=== PATIENT | male | born 1985 | race Caucasian/White ===

== ENCOUNTER 2019-11-03 05:35 | Inpatient (IN) | payer OTHER, MEDICAID ==
[2019-11-03] VITALS (14 sets, daily range): BP systolic 92–113; BP diastolic 48–66
[~2019-11-03] VITALS: Ht 172.7 cm; Wt 68.0 kg
[2019-11-03] MEDS ORDERED: methylPREDNISolone sod succ 125mg/2ml vial ONE (05:39)
[2019-11-03] MEDS ORDERED: magnesium 2GM in 50ml NS 50 ML IV STA (05:40)
[2019-11-03] MEDS ORDERED: albuterol 2.5 MG/3 ML nebule ONE (05:40)
[2019-11-03] MEDS ORDERED: methylPREDNISolone sod succ 125mg/2ml vial IV STA (05:40)
[2019-11-03] MEDS ORDERED: albuterol 2.5 MG/3 ML nebule CONTNEB PRN (05:45)
[2019-11-03] MEDS ORDERED: fentaNYL/PF 50MCG/1 ML 2ML syringe IV STA (05:57)
[2019-11-03] MEDS ORDERED: MIDAZolam 5mg/ml 2ml vial IV STA (05:57)
--- NOTE | 2019-11-03 05:58 | NUR ---
informed md of bp elevating and received order for fentanyl and versed. Order placed. MD at BS and full team in room 5.
[2019-11-03] MEDS ORDERED: sodium bicarbonate (8.4%) 1 mEq/ml syringe IV STA (05:59)
--- NOTE | 2019-11-03 05:59 | NUR ---
ordered 1 amp of bicarb/so done.
[2019-11-03] MEDS ORDERED: sodium bicarbonate (8.4%) inj. 1 MEQ/ML ML IV STA (06:03)
[2019-11-03 06:05] LABS: BASOPHILS # (AUTO) 0.1 X10'3 (0-0.2); BASOPHILS % (AUTO) 0.6 % (0-1); HEMOGLOBIN 13.5 g/dl (14.0-17.9)
[2019-11-03] MEDS ORDERED: FENTANYL-0.9 % NACL/PF 100 ML IV PRN (06:05)
[2019-11-03] MEDS ORDERED: midazolam 100mg in NS 100ml 100 ML IV PRN (06:05)
[2019-11-03 06:06] LABS: ABG BASE EXCESS -18.6 mmol/L (-2.0-2.0); ABG HCO3 17.2 mmol/L (22.0-26.0); ABG OXYGEN SATURATION 97.8 % (94-97); ABG PCO2 (T) 90.2 mmHg (35.0-48.0); ABG PO2 (T) 179.2 mmHg (75.0-100.0); ALLEN'S TEST POSITIVE; FCOHb 0.3 % (0.0-3.9); FLOW 15 L/min; FMetHb 0.4 % (0.0-1.5); FO2Hb 97.1 % (94-97); TOTAL HEMOGLOBIN 14.2 G/dl (14.0-18.0)
[2019-11-03 06:07] LABS: EOSINOPHILS # (AUTO) 0.5 X10'3 (0-0.9); EOSINOPHILS % (AUTO) 3.7 % (0-6); HEMATOCRIT 40.1 % (42.0-52.0); LYMPHOCYTES # (AUTO) 7.5 X10'3 (1.1-4.8); LYMPHOCYTES % (AUTO) 57.8 % (21-51); MEAN CORPUSCULAR HGB CONC 33.6 g/dL (33.0-36.5); MEAN CORPUSCULAR VOLUME 92.3 FL (78-98); MONOCYTES # (AUTO) 1.5 X10'3 (0-0.9); MONOCYTES % (AUTO) 11.3 % (2-12); NEUTROPHILS # (AUTO) 3.5 X10'3 (1.8-7.7); NEUTROPHILS % (AUTO) 26.6 % (42-75); PLATELET COUNT 295 X10'3 (140-440); RED BLOOD COUNT 4.35 X10'6 (4.70-6.10); RED CELL DISTRIBUTION WIDTH 12.5 % (11.5-14.5)
[2019-11-03 06:11] LABS: CLARITY,URINE SLIGHTLY CLOUDY (Clear); COLOR,URINE STRAW (Yellow); GLUCOSE, URINE 500 mg/dl (Neg); KETONES,URINE NEGATIVE (Neg); LEUKOCYTE ESTERASE ,URINE NEGATIVE (Neg); NITRITES, URINE NEGATIVE (Neg); OCCULT BLOOD,URINE SMALL (Neg); PROTEIN,URINE 100 mg/dl (Neg); UROBILINOGEN,URINE 0.2 E.U/dL (0.2-1.0)
[2019-11-03] MEDS ORDERED: CISatracurium besylate inj. 200 MG in normal saline 250ml IV soln 180 ML IV PRN (06:12)
--- NOTE | 2019-11-03 06:12 | NUR ---
rolled the pt to his side to assure there was nothing underneath him that could be hurting him as his bp is elevated.
[2019-11-03 06:15] LABS: UA COLLECTION TYPE FOLEY CATH
[2019-11-03] MEDS ORDERED: acetaminophen 325mg tablet PO PRN ×2 (06:15)
[2019-11-03] MEDS ORDERED: morphine 4 MG/ML inj SYRINge IV PRN (06:15)
[2019-11-03] MEDS ORDERED: morphine 2 MG/ML inj. syringe IV PRN (06:15)
[2019-11-03] MEDS: K, MAG and/or Phos replacement - Verify level? MC SCH ×2 (06:15→08:00)
[2019-11-03] MEDS ORDERED: CISatracurium **Bolus** 2 mg/ml inj IV PRN (06:15)
[2019-11-03] MEDS ORDERED: acetaminophen 650mg rectal suppository RC PRN (06:15)
[2019-11-03] MEDS ORDERED: ipratropium/albuterol 3ml nebule NEB PRN (06:15)
[2019-11-03] MEDS ORDERED: potassium Cl 20 mEq SR tablet PO PRN ×2 (06:15)
[2019-11-03] MEDS ORDERED: ondansetron/PF 4mg/2ml inj IV PRN (06:15)
[2019-11-03] MEDS ORDERED: LIDOcaine 2% 10ml TOPICAL JELLY (Urojet) TP ONE (06:15)
[2019-11-03] MEDS ORDERED: CefTRIAXone/D5W-Rocephin 1gm 50 ML IV ONE (06:15)
[2019-11-03 06:18] LABS: ALANINE AMINOTRANSFERASE 36 U/L (12-78); ALBUMIN 3.3 G/DL (3.4-5.0); ALBUMIN/GLOBULIN RATIO 1.3 (1.1-1.5); ALKALINE PHOSPHATASE 48 IU/L (46-116); ANION GAP 16 (8-16); ASPARTATE AMINO TRANSFERASE 26 U/L (10-37); BILIRUBIN,TOTAL 0.3 MG/DL (0.1-1.0); BLOOD UREA NITROGEN 20 MG/DL (7-18); BUN/CREATININE RATIO 12.1 (5.4-32.0); CALCIUM 7.5 MG/DL (8.5-10.1); CHLORIDE 106 MMOL/L (99-107); CREATININE 1.65 MG/DL (0.60-1.10); GLUCOSE 339 MG/DL (70-104); SODIUM 144 MMOL/L (135-145); TOTAL CARBON DIOXIDE 21.9 MMOL/L (24-32); TOTAL PROTEIN 5.8 G/DL (6.4-8.2); eGFR 49 ML/MIN
[2019-11-03] MEDS ORDERED: albuterol 2.5 MG/3 ML nebule NEB SCH (06:20)
[2019-11-03 06:23] LABS: BACTERIA,URINE 2+ /HPF (Neg)
[2019-11-03 06:24] LABS: SQUAMOUS EPITHELIAL CELL,UR FEW /LPF (FEW)
[2019-11-03 06:25] LABS: TRANSITIONAL EPI CELLS,URINE FEW /HPF
[2019-11-03 06:26] LABS: POTASSIUM 2.9 MMOL/L (3.5-5.1)
[2019-11-03 06:26] LABS: RENAL CELLS, URINE FEW /HPF
[2019-11-03 06:27] LABS: RBC,URINE 0-2 /HPF (0-2)
[2019-11-03] MEDS ORDERED: normal saline 1000ml 1,000 ML IV ONE (06:30)
--- NOTE | 2019-11-03 06:30 | NUR ---
REPORT RECIEVED, PT ON VENTILATOR WITH SETTINGS FIO2 100%, TV 350, PEEP8 66 RO, A/C PRVC. TACHYCARDIC, HYPERTENSIVE, COVID NEGATIVE. FENTANYL GTT AT 25MCG/HR RUNNING. VERSED GTT STARTED AT 2MG/HR. PT OVERBREATHING VENT WITH RR 30. TEMP DAMIAN IN PLACE WITH TEMP 34.5. REGINA MAGUIRE AT BEDSIDE. STILL NO PEDAL REFLEX TO STIMULI. PUPILS SLUGGISH AT 3MM BILAT.
[2019-11-03 06:33] LABS: URINE AMPHETAMINE SCREEN NEGATIVE (Neg); URINE BARBITUATE SCREEN NEGATIVE (Neg); URINE BENZODIAZEPINES SCREEN NEGATIVE (Neg); URINE CANNABINOID SCREEN NEGATIVE (Neg); URINE COCAINE SCREEN NEGATIVE (Neg); URINE METHADONE SCREEN NEGATIVE (Neg); URINE OPIATE SCREEN NEGATIVE (Neg); URINE PHENCYCLIDINE SCREEN NEGATIVE (Neg)
--- NOTE | 2019-11-03 06:45 | NUR ---
VIVIENNE AT BEDSIDE IN ER WITH MASK ON. DR. FRANKLIN IN TO SPEAK WITH FOR UPDATE OF PT.
--- NOTE | 2019-11-03 06:50 | NUR ---
TO CT WITH PT, VERSED INCREASED TO 4MG/HR, FENTANYL INCREASED TO 50MCG/HR DUE TO PT PAIN AND AGITATION.
[2019-11-03 06:58] LABS: ACETAMINOPHEN < 2.0 UG/ML (10-30); ETHANOL < 0.010 GM/DL (0.0-0.010)
[2019-11-03] MEDS: ipratropium/albuterol 3ml nebule NEB SCH ×5 (07:00→22:40)
--- NOTE | 2019-11-03 07:10 | NUR ---
BACK FROM CT, DEEP SUCTION DONE.
--- NOTE | 2019-11-03 07:30 | NUR ---
REMAINS AT BEDSIDE AND UPDATED ON POC. REPEAT ABG DONE. VS AND PT COMFORT BETTER AFTER INCREASE IN GTTS, VERSED AT 10MG/HR, FENTANYL AT 100MCG/HR OKAYED PER MD AFTER PT VS AND AGITATION TOO HIGH. WAITING ICU ROOM.
[2019-11-03 07:40] LABS: PLATELET ESTIMATE NORMAL; TOTAL CELLS COUNTED 100
[2019-11-03 07:41] LABS: SMUDGE CELLS 2+
--- NOTE | 2019-11-03 07:45 | NUR ---
MULTIPLE ATTEMPTS BY NOC SHIFT AND THIS NURSE TO PLACE NGT/OGT WITHOUT SUCCESS. REGINA FIELD ADMINISTRATOR AWARE BY NOC STAFF. WAITING FOR PT MEDS TO HELP CALM PT HE BITES DOWN ON TUBES AND SUCTION CATHETER. ORANGE BITE BLOCK PLACED BY RT.
[2019-11-03 07:50] LABS: ABG BASE EXCESS -8.4 mmol/L (-2.0-2.0); ABG HCO3 19.3 mmol/L (22.0-26.0); ABG OXYGEN SATURATION 99.4 % (94-97); ABG PCO2 (T) 43.6 mmHg (35.0-48.0); ALLEN'S TEST POSITIVE; FCOHb 0.3 % (0.0-3.9); FMetHb 0.4 % (0.0-1.5); FO2Hb 98.7 % (94-97); PEEP 8 cm H2O; RESPIRATORY RATE 20 b/min; TIDAL VOLUME 350 mL; TOTAL HEMOGLOBIN 15.7 G/dl (14.0-18.0)
[2019-11-03] MEDS: normal saline 1000ml 1,000 ML IV SCH ×2 (07:50→11:44)
[2019-11-03] MEDS ORDERED: methylPREDNISolone sod succ/PF 40mg inj. IV SCH (08:00)
[2019-11-03] MEDS ORDERED: magnesium 1 GM/2 ML inj ONE (08:00)
--- NOTE | 2019-11-03 08:02 | NUR ---
REPEAT ABG BACK WITH IMPROVEMENT, FIO2 DECREASED TO 50% AND PEEP DECREASED TO 5.
[2019-11-03 08:03] LABS: MAGNESIUM 2.5 MG/DL (1.5-2.4)
[2019-11-03] MEDS: enoxaparin 40mg/0.4ml syringe SUBCUT SCH (08:36)
[2019-11-03] MEDS: pantoprazole 40 MG vial IV SCH (08:36)
[2019-11-03 09:30] LABS: ANION GAP 14 (8-16); BLOOD UREA NITROGEN 19 MG/DL (7-18); CALCIUM 7.4 MG/DL (8.5-10.1); CHLORIDE 104 MMOL/L (99-107); CREATININE 1.36 MG/DL (0.60-1.10); GLUCOSE 357 MG/DL (70-104); MAGNESIUM 2.4 MG/DL (1.5-2.4); POTASSIUM 3.1 MMOL/L (3.5-5.1); SODIUM 141 MMOL/L (135-145); TOTAL CARBON DIOXIDE 23.2 MMOL/L (24-32); eGFR 61 ML/MIN
[2019-11-03] MEDS: potassium CL 10mEq/100ml bag 100 ML IV PRN ×4 (11:39→15:19)
[2019-11-03 12:33] LABS: CKMB RELATIVE INDEX 1.1 RATIO (0-2.5); TROPONIN I 0.04 NG/ML (0.0-0.05)
--- NOTE | 2019-11-03 13:58 | NUR ---
Initial: Pt admit s/p cardiac arrest and status asthmaticus. Pt intubated, no OG tube in place at this time. Current wt isn't scaled, d/w RN recommendation to obtain a scaled weight. TF recommendations below were calculated using IBW given no scaled weight for if prolonged intubation and to receive alternative nutrition. Will continue to follow closely. Recommendations: 1) IF TF, continuous Vital AF with goal rate of 60 mL/hr 2) IF TF, additional 200 mL water flush Q4H 3) IF TF, prealbumin q Wednesday/; daily weights 4) Once extubated, diet advancement to regular as medically indicated Addendum: 11/03/19 at [address] Amended: Links added.
[2019-11-03 14:04] LABS: PARTIAL THROMBOPLASTIN TIME 24 SECONDS (22-32)
[2019-11-03] MEDS: methylPREDNISolone sod succ/PF 40mg inj. IV SCH ×2 (14:05→20:37)
[2019-11-03] MEDS: FENTANYL-0.9 % NACL/PF 100 ML IV PRN ×2 (14:12→20:38)
[2019-11-03] MEDS: midazolam 100mg in NS 100ml 100 ML IV PRN ×2 (16:09→20:37)
--- NOTE | 2019-11-03 16:12 | NUR ---
Pt arrived to ICU at 0856, Jittery movement almost every 60 seconds, Informed Dr. Del Toro, EEG done, Dr. Del Toor aware of result. Labs discussed with Dr. Del Toro during rounds. Started pt on Hypothermia at 1228pm, NG and esophageal temp probe inserted. NG to LIWS, Potassium replaced, Lactic acid Q2Hr, BIS monitor started. Pt started targeted temperature around 1500. Will continue care
[2019-11-03] MEDS ORDERED: CITA20TA28 PO ×2 (17:49→18:47)
[2019-11-03] MEDS ORDERED: GABA800T11 PO ×2 (17:49→18:47)
--- NOTE | 2019-11-03 18:32 | NUR ---
Problems reprioritized. Patient report given, questions answered & plan of care reviewed with Kirsty.
--- NOTE | 2019-11-03 18:35 | NUR ---
[id number] I have received report and assumed care of pt. Pt resting in bed, on ventilator, hypothermic Protocol in place. Versed and Fentanyl in place to keep BIZ 40-55, titrated per protocol. Myoclonic jerking noted, generalized lasting a few seconds with an interval of 20 to 30 sec. BIZ near 80 to 90. increased per protocol. Blood work sent to Lab, Dr. Del Toro rounded briefly updated on pt. Nimbex started per protocol. Pt has reached target temp. Phase 2 started. called updated on pts condition, questions answered.
--- NOTE | 2019-11-03 18:39 | NUR ---
Gave report to Leticia (RN). She is aware of last Lactic Acid (9.6), she said she will get an ABG on the patient and call the results to Dr. Del Toro.
[2019-11-03 19:01] LABS: ABG BASE EXCESS -10.9 mmol/L (-2.0-2.0); ABG HCO3 16.3 mmol/L (22.0-26.0); ABG OXYGEN SATURATION 98.7 % (94-97); ABG PCO2 (T) 34.4 mmHg (35.0-48.0); ABG PO2 (T) 142.7 mmHg (75.0-100.0); ALLEN'S TEST POSITIVE; FCOHb 0.3 % (0.0-3.9); FMetHb 0.1 % (0.0-1.5); FO2Hb 98.3 % (94-97); PATIENT TEMPERATURE 32.9; PEEP 5 cm H2O; RESPIRATORY RATE 20 b/min; TIDAL VOLUME 350 mL; TOTAL HEMOGLOBIN 14.8 G/dl (14.0-18.0)
[2019-11-03 19:12] LABS: BLOOD UREA NITROGEN 19 MG/DL (7-18); GLUCOSE 138 MG/DL (70-104)
[2019-11-03 19:40] LABS: ALBUMIN 4.1 G/DL (3.4-5.0); ANION GAP 20 (8-16); CALCIUM 8.2 MG/DL (8.5-10.1); CHLORIDE 106 MMOL/L (99-107); CKMB RELATIVE INDEX 0.8 RATIO (0-2.5); CREATINE KINASE 354 U/L (39-308); CREATININE 1.12 MG/DL (0.60-1.10); MAGNESIUM 2.1 MG/DL (1.5-2.4); POTASSIUM 3.9 MMOL/L (3.5-5.1); SODIUM 145 MMOL/L (135-145); TOTAL CARBON DIOXIDE 19.5 MMOL/L (24-32); TROPONIN I < 0.04 NG/ML (0.0-0.05); eGFR 76 ML/MIN
[2019-11-03 19:47] LABS: PARTIAL THROMBOPLASTIN TIME 25 SECONDS (22-32)
[2019-11-03 19:49] LABS: ALANINE AMINOTRANSFERASE 45 U/L (12-78); ALBUMIN 3.9 G/DL (3.4-5.0); ALBUMIN/GLOBULIN RATIO 1.3 (1.1-1.5); ALKALINE PHOSPHATASE 44 IU/L (46-116); ANION GAP 16 (8-16); ASPARTATE AMINO TRANSFERASE 27 U/L (10-37); BILIRUBIN,TOTAL 0.2 MG/DL (0.1-1.0); BLOOD UREA NITROGEN 16 MG/DL (7-18); BUN/CREATININE RATIO 15.1 (5.4-32.0); CALCIUM 7.9 MG/DL (8.5-10.1); CHLORIDE 108 MMOL/L (99-107); CREATININE 1.06 MG/DL (0.60-1.10); GLUCOSE 125 MG/DL (70-104); POTASSIUM 4.3 MMOL/L (3.5-5.1); SODIUM 142 MMOL/L (135-145); TOTAL CARBON DIOXIDE 17.6 MMOL/L (24-32); TOTAL PROTEIN 6.8 G/DL (6.4-8.2); eGFR 81 ML/MIN
[2019-11-03] MEDS: CISatracurium besylate inj. 100 MG in normal saline 100ml IV soln 90 ML IV PRN (19:56)
--- NOTE | 2019-11-03 20:00 | NUR ---
Pt no longer having myoclonic jerking Biz is less then 60
[2019-11-03 22:05] LABS: BASOPHILS % (AUTO) 0.2 % (0-1); EOSINOPHILS % (AUTO) 0 % (0-6); HEMOGLOBIN 13.5 g/dl (14.0-17.9); LYMPHOCYTES # (AUTO) 0.6 X10'3 (1.1-4.8); LYMPHOCYTES % (AUTO) 4.6 % (21-51); MEAN CORPUSCULAR HEMOGLOBIN 29.8 PG (27.0-31.0); MEAN CORPUSCULAR HGB CONC 33.8 g/dL (33.0-36.5); MEAN CORPUSCULAR VOLUME 88.2 FL (78-98); MEAN PLATELET VOLUME 8.9 FL (7.4-10.4); MONOCYTES # (AUTO) 0.6 X10'3 (0-0.9); NEUTROPHILS # (AUTO) 11.2 X10'3 (1.8-7.7); NEUTROPHILS % (AUTO) 90.2 % (42-75); PLATELET COUNT 233 X10'3 (140-440); RED BLOOD COUNT 4.54 X10'6 (4.70-6.10); RED CELL DISTRIBUTION WIDTH 12.5 % (11.5-14.5); WHITE BLOOD COUNT 12.4 X10'3 (4.5-11.0)
[2019-11-03 22:19] LABS: ALBUMIN 3.6 G/DL (3.4-5.0); ANION GAP 16 (8-16); BLOOD UREA NITROGEN 17 MG/DL (7-18); BUN/CREATININE RATIO 17.3 (5.4-32.0); CALCIUM 7.9 MG/DL (8.5-10.1); CHLORIDE 107 MMOL/L (99-107); CKMB RELATIVE INDEX 1.4 RATIO (0-2.5); CREATINE KINASE 315 U/L (39-308); CREATININE 0.98 MG/DL (0.60-1.10); GLUCOSE 125 MG/DL (70-104); MAGNESIUM 1.7 MG/DL (1.5-2.4); POTASSIUM 4.6 MMOL/L (3.5-5.1); SODIUM 142 MMOL/L (135-145); TOTAL CARBON DIOXIDE 19.1 MMOL/L (24-32); TROPONIN I < 0.04 NG/ML (0.0-0.05); eGFR 89 ML/MIN
[2019-11-04] VITALS (24 sets, daily range): BP systolic 99–132; BP diastolic 51–77
[2019-11-04 00:35] LABS: BASOPHILS % (AUTO) 0.2 % (0-1); EOSINOPHILS % (AUTO) 0 % (0-6); HEMATOCRIT 39.8 % (42.0-52.0); HEMOGLOBIN 13.8 g/dl (14.0-17.9); LYMPHOCYTES # (AUTO) 0.7 X10'3 (1.1-4.8); LYMPHOCYTES % (AUTO) 5.5 % (21-51); MEAN CORPUSCULAR HEMOGLOBIN 30.7 PG (27.0-31.0); MEAN CORPUSCULAR HGB CONC 34.6 g/dL (33.0-36.5); MEAN CORPUSCULAR VOLUME 88.6 FL (78-98); MEAN PLATELET VOLUME 8.9 FL (7.4-10.4); MONOCYTES % (AUTO) 7.4 % (2-12); NEUTROPHILS # (AUTO) 11.4 X10'3 (1.8-7.7); NEUTROPHILS % (AUTO) 86.9 % (42-75); PLATELET COUNT 219 X10'3 (140-440); RED BLOOD COUNT 4.49 X10'6 (4.70-6.10); RED CELL DISTRIBUTION WIDTH 12.3 % (11.5-14.5); WHITE BLOOD COUNT 13.1 X10'3 (4.5-11.0)
--- NOTE | 2019-11-04 00:45 | NUR ---
Bis having spikes of an increase of 10 points approx q 3 to 5 sec without any stimulation, versed increased to 20mg/hr Devante Yee NP aware.
[2019-11-04 00:48] LABS: PARTIAL THROMBOPLASTIN TIME 25 SECONDS (22-32)
[2019-11-04 01:04] LABS: ALANINE AMINOTRANSFERASE 44 U/L (12-78); ALBUMIN 3.6 G/DL (3.4-5.0); ALBUMIN/GLOBULIN RATIO 1.3 (1.1-1.5); ALKALINE PHOSPHATASE 37 IU/L (46-116); ANION GAP 15 (8-16); ASPARTATE AMINO TRANSFERASE 30 U/L (10-37); BILIRUBIN,TOTAL 0.2 MG/DL (0.1-1.0); BLOOD UREA NITROGEN 16 MG/DL (7-18); CALCIUM 7.9 MG/DL (8.5-10.1); CHLORIDE 107 MMOL/L (99-107); CKMB RELATIVE INDEX 1.5 RATIO (0-2.5); CREATINE KINASE 305 U/L (39-308); CREATININE 0.94 MG/DL (0.60-1.10); GLUCOSE 128 MG/DL (70-104); MAGNESIUM 1.7 MG/DL (1.5-2.4); PHOSPHORUS 4.8 MG/DL (2.3-4.5); POTASSIUM 4.1 MMOL/L (3.5-5.1); SODIUM 142 MMOL/L (135-145); TOTAL CARBON DIOXIDE 20.1 MMOL/L (24-32); TOTAL PROTEIN 6.3 G/DL (6.4-8.2); TROPONIN I < 0.04 NG/ML (0.0-0.05); eGFR > 90 ML/MIN
[2019-11-04] MEDS: methylPREDNISolone sod succ/PF 40mg inj. IV SCH ×4 (02:20→20:57)
--- NOTE | 2019-11-04 02:43 | NUR ---
Pt having less frequent BIS spikes then prior to increase in versed. continue to monitor, hob 30-40 degrees with neutral head position, room remains dark with minimal stimuli.
[2019-11-04] MEDS: ipratropium/albuterol 3ml nebule NEB SCH ×6 (03:19→22:50)
[2019-11-04 03:40] LABS: ABG BASE EXCESS -6.5 mmol/L (-2.0-2.0); ABG HCO3 18.4 mmol/L (22.0-26.0); ABG OXYGEN SATURATION 97.8 % (94-97); ABG PCO2 (T) 29.5 mmHg (35.0-48.0); ABG PO2 (T) 88.7 mmHg (75.0-100.0); ALLEN'S TEST POSITIVE; FCOHb 0.1 % (0.0-3.9); FMetHb 0.1 % (0.0-1.5); FO2Hb 97.6 % (94-97); PEEP 5 cm H2O; RESPIRATORY RATE 20 b/min; TIDAL VOLUME 450 mL; TOTAL HEMOGLOBIN 14.3 G/dl (14.0-18.0)
[2019-11-04] MEDS: FENTANYL-0.9 % NACL/PF 100 ML IV PRN ×3 (03:53→18:03)
[2019-11-04] MEDS: midazolam 100mg in NS 100ml 100 ML IV PRN ×3 (03:53→14:17)
--- NOTE | 2019-11-04 06:14 | NUR ---
report given to rec rn plan of care reviewed
[2019-11-04 06:16] LABS: ALBUMIN 3.6 G/DL (3.4-5.0); ANION GAP 17 (8-16); BLOOD UREA NITROGEN 15 MG/DL (7-18); BUN/CREATININE RATIO 24.2 (5.4-32.0); CALCIUM 8.5 MG/DL (8.5-10.1); CHLORIDE 107 MMOL/L (99-107); CKMB RELATIVE INDEX 1.7 RATIO (0-2.5); CREATINE KINASE 328 U/L (39-308); CREATININE 0.62 MG/DL (0.60-1.10); GLUCOSE 139 MG/DL (70-104); MAGNESIUM 1.6 MG/DL (1.5-2.4); SODIUM 141 MMOL/L (135-145); TOTAL CARBON DIOXIDE 17.5 MMOL/L (24-32); TROPONIN I < 0.04 NG/ML (0.0-0.05); eGFR > 90 ML/MIN
[2019-11-04 06:18] LABS: POTASSIUM 3.5 MMOL/L (3.5-5.1)
[2019-11-04] MEDS: mineral oil/petrolatum ophthal oint EACHEYE SCH ×3 (07:10→20:00)
[2019-11-04] MEDS: pantoprazole 40 MG vial IV SCH (07:10)
[2019-11-04] MEDS: enoxaparin 40mg/0.4ml syringe SUBCUT SCH (07:11)
[2019-11-04] MEDS: K, MAG and/or Phos replacement - Verify level? MC SCH (07:54)
[2019-11-04 09:00] LABS: ABG BASE EXCESS -3.2 mmol/L (-2.0-2.0); ABG HCO3 21.4 mmol/L (22.0-26.0); ABG OXYGEN SATURATION 96.9 % (94-97); ABG PO2 (T) 76.9 mmHg (75.0-100.0); ALLEN'S TEST POSITIVE; FCOHb 0.2 % (0.0-3.9); FMetHb 0.2 % (0.0-1.5); FO2Hb 96.5 % (94-97); PATIENT TEMPERATURE 32.9; PEEP 5 cm H2O; RESPIRATORY RATE 20 b/min; TIDAL VOLUME 450 mL; TOTAL HEMOGLOBIN 14.4 G/dl (14.0-18.0)
[2019-11-04 09:23] LABS: BASOPHILS % (AUTO) 0.1 % (0-1); EOSINOPHILS % (AUTO) 0 % (0-6); HEMATOCRIT 39.8 % (42.0-52.0); HEMOGLOBIN 13.9 g/dl (14.0-17.9); LYMPHOCYTES # (AUTO) 0.8 X10'3 (1.1-4.8); LYMPHOCYTES % (AUTO) 5.4 % (21-51); MEAN CORPUSCULAR HEMOGLOBIN 30.6 PG (27.0-31.0); MEAN CORPUSCULAR HGB CONC 34.8 g/dL (33.0-36.5); MEAN CORPUSCULAR VOLUME 87.8 FL (78-98); MEAN PLATELET VOLUME 9.2 FL (7.4-10.4); MONOCYTES # (AUTO) 0.9 X10'3 (0-0.9); MONOCYTES % (AUTO) 6.6 % (2-12); NEUTROPHILS # (AUTO) 12.5 X10'3 (1.8-7.7); NEUTROPHILS % (AUTO) 87.9 % (42-75); PLATELET COUNT 221 X10'3 (140-440); RED BLOOD COUNT 4.54 X10'6 (4.70-6.10); RED CELL DISTRIBUTION WIDTH 12.9 % (11.5-14.5); WHITE BLOOD COUNT 14.2 X10'3 (4.5-11.0)
[2019-11-04 09:36] LABS: PARTIAL THROMBOPLASTIN TIME 27 SECONDS (22-32)
--- NOTE | 2019-11-04 09:54 | NUR ---
Call received from Radiology, NG tube coiled up in the esophagus. Pulled the tube out, placed a new NG tube to R-Nare. Placement confirmed with Auscultation and suction. Dr. Stewart aware, Asked Dr. Stewart if he wants an x-ray, he said not needed as placement is confirmed with auscultation and suction, 100ml of Green drainage.
[2019-11-04 10:50] LABS: ALANINE AMINOTRANSFERASE 43 U/L (12-78); ALBUMIN 3.7 G/DL (3.4-5.0); ALBUMIN/GLOBULIN RATIO 1.3 (1.1-1.5); ALKALINE PHOSPHATASE 39 IU/L (46-116); ANION GAP 13 (8-16); ASPARTATE AMINO TRANSFERASE 36 U/L (10-37); BILIRUBIN,TOTAL 0.3 MG/DL (0.1-1.0); BLOOD UREA NITROGEN 12 MG/DL (7-18); BUN/CREATININE RATIO 16.7 (5.4-32.0); CALCIUM 8.8 MG/DL (8.5-10.1); CHLORIDE 108 MMOL/L (99-107); CREATININE 0.72 MG/DL (0.60-1.10); GLUCOSE 122 MG/DL (70-104); MAGNESIUM 1.8 MG/DL (1.5-2.4); SODIUM 142 MMOL/L (135-145); TOTAL CARBON DIOXIDE 21.5 MMOL/L (24-32); TOTAL PROTEIN 6.5 G/DL (6.4-8.2); eGFR > 90 ML/MIN
[2019-11-04] MEDS: CISatracurium besylate inj. 100 MG in normal saline 100ml IV soln 90 ML IV PRN (12:08)
[2019-11-04 13:16] LABS: CKMB RELATIVE INDEX 2.7 RATIO (0-2.5); CREATINE KINASE 258 U/L (39-308); TROPONIN I < 0.04 NG/ML (0.0-0.05)
--- NOTE | 2019-11-04 13:52 | NUR ---
Pt is having very mild twitches that happens almost every 30-60 secs, Dr. Stewart at bedside, lab results and pt condition reported to him, Also informed Dr. Stewart about the twitches and its frequency. He said to increase the rate of Nimbex. Dr Stewart also spoke with pt's over the phone. Addendum: 11/04/19 at 1408 by Seng Biswas RN The frequency of twitches were very far apart this morning (maybe about 1 twitch every 30-60 minutes or even less), as of the last hour it has increased to almost every 30-60 seconds. Addendum: 11/04/19 at 1523 by Seng Biswas RN No More twitches noted with increase in Nimbex.
[2019-11-04 16:01] LABS: ABG BASE EXCESS -2.7 mmol/L (-2.0-2.0); ABG HCO3 21.5 mmol/L (22.0-26.0); ABG OXYGEN SATURATION 97.4 % (94-97); ABG PCO2 (T) 30.3 mmHg (35.0-48.0); ABG PO2 (T) 81.9 mmHg (75.0-100.0); FCOHb 0.3 % (0.0-3.9); FMetHb 0.2 % (0.0-1.5); FO2Hb 96.9 % (94-97); PATIENT TEMPERATURE 33.1; PEEP 5 cm H2O; RESPIRATORY RATE 20 b/min; TIDAL VOLUME 450 mL; TOTAL HEMOGLOBIN 14.6 G/dl (14.0-18.0)
[2019-11-04] MEDS: normal saline 1000ml 1,000 ML IV SCH ×2 (16:03→22:12)
[2019-11-04 16:17] LABS: ALBUMIN 3.8 G/DL (3.4-5.0); ANION GAP 9 (8-16); BLOOD UREA NITROGEN 8 MG/DL (7-18); BUN/CREATININE RATIO 12.7 (5.4-32.0); CALCIUM 9.3 MG/DL (8.5-10.1); CHLORIDE 110 MMOL/L (99-107); CREATININE 0.63 MG/DL (0.60-1.10); GLUCOSE 120 MG/DL (70-104); MAGNESIUM 2.1 MG/DL (1.5-2.4); POTASSIUM 4.4 MMOL/L (3.5-5.1); SODIUM 143 MMOL/L (135-145); TOTAL CARBON DIOXIDE 24.1 MMOL/L (24-32); eGFR > 90 ML/MIN
--- NOTE | 2019-11-04 17:22 | NUR ---
Phase 3, Rewarming started at 1440.
--- NOTE | 2019-11-04 18:24 | NUR ---
Problems reprioritized. Patient report given, questions answered & plan of care reviewed with Frantz.
--- NOTE | 2019-11-04 19:00 | NUR ---
Patient in room ICU 2042. I have received report from Zofia TAYLOR and had the opportunity to ask questions and assume patient care.
[2019-11-04 20:50] LABS: ALBUMIN 3.6 G/DL (3.4-5.0); ANION GAP 10 (8-16); BLOOD UREA NITROGEN 9 MG/DL (7-18); BUN/CREATININE RATIO 13.6 (5.4-32.0); CALCIUM 8.9 MG/DL (8.5-10.1); CHLORIDE 111 MMOL/L (99-107); CREATINE KINASE 232 U/L (39-308); CREATININE 0.66 MG/DL (0.60-1.10); GLUCOSE 125 MG/DL (70-104); MAGNESIUM 2.1 MG/DL (1.5-2.4); POTASSIUM 3.6 MMOL/L (3.5-5.1); SODIUM 145 MMOL/L (135-145); TOTAL CARBON DIOXIDE 24.5 MMOL/L (24-32); eGFR > 90 ML/MIN
[2019-11-04 21:00] LABS: ABG BASE EXCESS -4.2 mmol/L (-2.0-2.0); ABG HCO3 20.5 mmol/L (22.0-26.0); ABG OXYGEN SATURATION 96.7 % (94-97); ABG PCO2 (T) 32.5 mmHg (35.0-48.0); ABG PO2 (T) 82.2 mmHg (75.0-100.0); ALLEN'S TEST POSITIVE; FCOHb 0.3 % (0.0-3.9); FMetHb 0.1 % (0.0-1.5); FO2Hb 96.3 % (94-97); PATIENT TEMPERATURE 34.3; PEEP 5 cm H2O; RESPIRATORY RATE 18 b/min; TIDAL VOLUME 450 mL
[2019-11-04 21:16] LABS: CKMB RELATIVE INDEX 2.5 RATIO (0-2.5); TROPONIN I < 0.04 NG/ML (0.0-0.05)
[2019-11-05] VITALS (43 sets, daily range): BP systolic 106–135; BP diastolic 49–74
[2019-11-05] MEDS: methylPREDNISolone sod succ/PF 40mg inj. IV SCH ×4 (02:00→23:44)
[2019-11-05] MEDS: mineral oil/petrolatum ophthal oint EACHEYE SCH ×4 (02:00→20:12)
[2019-11-05 02:16] LABS: ABG BASE EXCESS -3.4 mmol/L (-2.0-2.0); ABG HCO3 21.2 mmol/L (22.0-26.0); ABG OXYGEN SATURATION 97.2 % (94-97); ABG PCO2 (T) 34.5 mmHg (35.0-48.0); ABG PO2 (T) 97.3 mmHg (75.0-100.0); ALLEN'S TEST POSITIVE; FCOHb 0.3 % (0.0-3.9); FMetHb 0.1 % (0.0-1.5); FO2Hb 96.8 % (94-97); PATIENT TEMPERATURE 35.7; PEEP 5 cm H2O; RESPIRATORY RATE 18 b/min; TIDAL VOLUME 450 mL; TOTAL HEMOGLOBIN 13.7 G/dl (14.0-18.0)
[2019-11-05] MEDS: midazolam 100mg in NS 100ml 100 ML IV PRN ×5 (02:22→21:56)
[2019-11-05] MEDS: FENTANYL-0.9 % NACL/PF 100 ML IV PRN ×4 (02:24→21:56)
[2019-11-05 02:43] LABS: BASOPHILS % (AUTO) 0.1 % (0-1); EOSINOPHILS % (AUTO) 0 % (0-6); HEMATOCRIT 35.6 % (42.0-52.0); HEMOGLOBIN 12.4 g/dl (14.0-17.9); LYMPHOCYTES # (AUTO) 0.9 X10'3 (1.1-4.8); MEAN CORPUSCULAR HEMOGLOBIN 30.9 PG (27.0-31.0); MEAN CORPUSCULAR HGB CONC 34.9 g/dL (33.0-36.5); MEAN CORPUSCULAR VOLUME 88.7 FL (78-98); MEAN PLATELET VOLUME 9.5 FL (7.4-10.4); MONOCYTES # (AUTO) 0.9 X10'3 (0-0.9); NEUTROPHILS # (AUTO) 13.8 X10'3 (1.8-7.7); NEUTROPHILS % (AUTO) 87.9 % (42-75); PLATELET COUNT 226 X10'3 (140-440); RED BLOOD COUNT 4.01 X10'6 (4.70-6.10); RED CELL DISTRIBUTION WIDTH 12.7 % (11.5-14.5); WHITE BLOOD COUNT 15.7 X10'3 (4.5-11.0)
[2019-11-05 02:51] LABS: PARTIAL THROMBOPLASTIN TIME 26 SECONDS (22-32)
[2019-11-05 03:10] LABS: ALANINE AMINOTRANSFERASE 36 U/L (12-78); ALBUMIN 3.1 G/DL (3.4-5.0); ALBUMIN/GLOBULIN RATIO 1.2 (1.1-1.5); ALKALINE PHOSPHATASE 36 IU/L (46-116); ANION GAP 9 (8-16); ASPARTATE AMINO TRANSFERASE 46 U/L (10-37); BILIRUBIN,TOTAL 0.2 MG/DL (0.1-1.0); BLOOD UREA NITROGEN 10 MG/DL (7-18); BUN/CREATININE RATIO 13.9 (5.4-32.0); CHLORIDE 113 MMOL/L (99-107); CKMB RELATIVE INDEX 2.6 RATIO (0-2.5); CREATINE KINASE 153 U/L (39-308); CREATININE 0.72 MG/DL (0.60-1.10); GLUCOSE 111 MG/DL (70-104); MAGNESIUM 1.9 MG/DL (1.5-2.4); PHOSPHORUS 3.1 MG/DL (2.3-4.5); POTASSIUM 3.6 MMOL/L (3.5-5.1); SODIUM 146 MMOL/L (135-145); TOTAL PROTEIN 5.6 G/DL (6.4-8.2); TROPONIN I < 0.04 NG/ML (0.0-0.05); eGFR > 90 ML/MIN
[2019-11-05] MEDS: ipratropium/albuterol 3ml nebule NEB SCH ×6 (03:22→23:20)
[2019-11-05] MEDS: CISatracurium besylate inj. 100 MG in normal saline 100ml IV soln 90 ML IV PRN (04:04)
--- NOTE | 2019-11-05 05:12 | NUR ---
Weaned patient of
--- NOTE | 2019-11-05 05:13 | NUR ---
Weaned patient off of nimbex as the patient reached its target temperature. Pt heart rate slowly increased as his temp rojelio. PT is doing frequent twitches some more spastic than others. heart rate is currently sustaining in the low 130's, but maintaining good blood pressures and O2 saturations. I called Johnson about the high heart rate and the twitching and he said there was not much to do at this point but to monitor his vitals signs.
[2019-11-05 06:31] LABS: CKMB RELATIVE INDEX 2.7 RATIO (0-2.5); CREATINE KINASE 162 U/L (39-308); TROPONIN I < 0.04 NG/ML (0.0-0.05)
[2019-11-05] MEDS: enoxaparin 40mg/0.4ml syringe SUBCUT SCH (07:33)
[2019-11-05] MEDS: pantoprazole 40 MG vial IV SCH (07:34)
[2019-11-05] MEDS: K, MAG and/or Phos replacement - Verify level? MC SCH (08:44)
[2019-11-05 09:40] LABS: ABG BASE EXCESS -1.9 mmol/L (-2.0-2.0); ABG HCO3 23.2 mmol/L (22.0-26.0); ABG OXYGEN SATURATION 96.9 % (94-97); ABG PCO2 (T) 40.4 mmHg (35.0-48.0); ABG PO2 (T) 92.9 mmHg (75.0-100.0); ALLEN'S TEST POSITIVE; FCOHb 0.3 % (0.0-3.9); FMetHb 0.2 % (0.0-1.5); FO2Hb 96.4 % (94-97); PATIENT TEMPERATURE 36.8; PEEP 5 cm H2O; RESPIRATORY RATE 18 b/min; TIDAL VOLUME 450 mL; TOTAL HEMOGLOBIN 13.5 G/dl (14.0-18.0)
[2019-11-05 10:12] LABS: ALBUMIN 3.5 G/DL (3.4-5.0); ANION GAP 9 (8-16); BLOOD UREA NITROGEN 15 MG/DL (7-18); BUN/CREATININE RATIO 17.4 (5.4-32.0); CALCIUM 8.6 MG/DL (8.5-10.1); CHLORIDE 111 MMOL/L (99-107); CREATINE KINASE 140 U/L (39-308); CREATININE 0.86 MG/DL (0.60-1.10); GLUCOSE 116 MG/DL (70-104); SODIUM 145 MMOL/L (135-145); TOTAL CARBON DIOXIDE 25.5 MMOL/L (24-32); TROPONIN I < 0.04 NG/ML (0.0-0.05); eGFR > 90 ML/MIN
--- NOTE | 2019-11-05 10:20 | NUR ---
TF Consult: Trickle TF to start today at 10ml/hr per retail store associate. MAP 73 this AM w/ R NG in place per EMR. Recs below; will monitor for EN tolerance and advancement as medically indicated. Initial: Pt admit s/p cardiac arrest and status asthmaticus. Pt intubated, no OG tube in place at this time. Current wt isn't scaled, d/w RN recommendation to obtain a scaled weight. TF recommendations below were calculated using IBW given no scaled weight for if prolonged intubation and to receive alternative nutrition. Will continue to follow closely. Recommendations: 1) Trickle NGTF per MD using Vital AF at 10ml/hr; if tolerates trickle advance as medically indicated to goal rate of 60 mL/hr 2) additional 200 mL water flush Q4H 3) prealbumin q Wednesday/; daily weights 4) Once extubation, diet advancement to regular as medically indicated Addendum: 11/05/19 at [address] Amended: Links added.
[2019-11-05] MEDS: normal saline 1000ml 1,000 ML IV SCH ×2 (11:13→19:00)
[2019-11-05 14:50] LABS: ABG BASE EXCESS -1.7 mmol/L (-2.0-2.0); ABG HCO3 23.7 mmol/L (22.0-26.0); ABG OXYGEN SATURATION 96.6 % (94-97); ABG PO2 (T) 87.8 mmHg (75.0-100.0); ALLEN'S TEST POSITIVE; FCOHb 0.3 % (0.0-3.9); FMetHb 0.2 % (0.0-1.5); FO2Hb 96.1 % (94-97); PATIENT TEMPERATURE 36.6; RESPIRATORY RATE 18 b/min; TIDAL VOLUME 450 mL; TOTAL HEMOGLOBIN 13.7 G/dl (14.0-18.0)
[2019-11-05 15:42] LABS: ALBUMIN 3.4 G/DL (3.4-5.0); ANION GAP 8 (8-16); BLOOD UREA NITROGEN 17 MG/DL (7-18); BUN/CREATININE RATIO 19.8 (5.4-32.0); CALCIUM 8.4 MG/DL (8.5-10.1); CHLORIDE 110 MMOL/L (99-107); CREATININE 0.86 MG/DL (0.60-1.10); GLUCOSE 162 MG/DL (70-104); POTASSIUM 3.8 MMOL/L (3.5-5.1); SODIUM 143 MMOL/L (135-145); TOTAL CARBON DIOXIDE 24.9 MMOL/L (24-32); eGFR > 90 ML/MIN
--- NOTE | 2019-11-05 17:32 | NUR ---
Still on phase 4 of TTM. Pt has stopped twitching since mid afternoon, pupils dilated to size 4, some cough while repositioning, still no response. Started on Trickle Tube feeding with water flushes. Dr. Stewart spoke with family via phone. Per his permission and sister in law came to visit. Dr. Stewart spoke with them at bedside. Per code status changed to DNR. Pt will have MRI, EEG and neuro tele consult tomorrow. Will continue monitoring.
[2019-11-05 17:51] LABS: CREATINE KINASE 147 U/L (39-308); TROPONIN I < 0.04 NG/ML (0.0-0.05)
--- NOTE | 2019-11-05 18:20 | NUR ---
Patient in room ICU 2042. I have received report from Seng TAYLOR and had the opportunity to ask questions and assume patient care.
--- NOTE | 2019-11-05 18:22 | NUR ---
Problems reprioritized. Patient report given, questions answered & plan of care reviewed with Shanae.
[2019-11-05 21:31] LABS: ALBUMIN 3.2 G/DL (3.4-5.0); ANION GAP 7 (8-16); BLOOD UREA NITROGEN 16 MG/DL (7-18); BUN/CREATININE RATIO 17.6 (5.4-32.0); CALCIUM 8.7 MG/DL (8.5-10.1); CHLORIDE 113 MMOL/L (99-107); CREATININE 0.91 MG/DL (0.60-1.10); GLUCOSE 128 MG/DL (70-104); MAGNESIUM 2.2 MG/DL (1.5-2.4); POTASSIUM 3.6 MMOL/L (3.5-5.1); SODIUM 147 MMOL/L (135-145); TOTAL CARBON DIOXIDE 27.3 MMOL/L (24-32); eGFR > 90 ML/MIN
[2019-11-06] VITALS (39 sets, daily range): BP systolic 107–192; BP diastolic 51–127
[2019-11-06 01:39] LABS: LYMPHOCYTES # (AUTO) 0.6 X10'3 (1.1-4.8); MEAN PLATELET VOLUME 9.4 FL (7.4-10.4); MONOCYTES # (AUTO) 1.3 X10'3 (0-0.9); NEUTROPHILS # (AUTO) 14.2 X10'3 (1.8-7.7); PLATELET COUNT 245 X10'3 (140-440); WHITE BLOOD COUNT 16.2 X10'3 (4.5-11.0)
[2019-11-06 01:40] LABS: BASOPHILS % (AUTO) 0.2 % (0-1); EOSINOPHILS % (AUTO) 0 % (0-6); HEMATOCRIT 35.4 % (42.0-52.0); HEMOGLOBIN 12.3 g/dl (14.0-17.9); MEAN CORPUSCULAR HEMOGLOBIN 31.1 PG (27.0-31.0); MEAN CORPUSCULAR HGB CONC 34.8 g/dL (33.0-36.5); MEAN CORPUSCULAR VOLUME 89.5 FL (78-98); NEUTROPHILS % (AUTO) 87.8 % (42-75); RED BLOOD COUNT 3.96 X10'6 (4.70-6.10); RED CELL DISTRIBUTION WIDTH 12.9 % (11.5-14.5)
[2019-11-06 01:50] LABS: ALANINE AMINOTRANSFERASE 31 U/L (12-78); ALBUMIN 3.2 G/DL (3.4-5.0); ALBUMIN/GLOBULIN RATIO 1.2 (1.1-1.5); ALKALINE PHOSPHATASE 40 IU/L (46-116); ANION GAP 6 (8-16); ASPARTATE AMINO TRANSFERASE 71 U/L (10-37); BILIRUBIN,TOTAL 0.1 MG/DL (0.1-1.0); BLOOD UREA NITROGEN 15 MG/DL (7-18); BUN/CREATININE RATIO 17.2 (5.4-32.0); CALCIUM 8.5 MG/DL (8.5-10.1); CHLORIDE 114 MMOL/L (99-107); CREATININE 0.87 MG/DL (0.60-1.10); GLUCOSE 124 MG/DL (70-104); MAGNESIUM 2.4 MG/DL (1.5-2.4); PHOSPHORUS 3.4 MG/DL (2.3-4.5); PREALBUMIN 27.5 MG/DL (19-36); SODIUM 149 MMOL/L (135-145); TOTAL CARBON DIOXIDE 29.5 MMOL/L (24-32); TOTAL PROTEIN 5.9 G/DL (6.4-8.2); eGFR > 90 ML/MIN
[2019-11-06] MEDS: mineral oil/petrolatum ophthal oint EACHEYE SCH ×4 (01:51→20:47)
[2019-11-06 01:59] LABS: PARTIAL THROMBOPLASTIN TIME 24 SECONDS (22-32)
[2019-11-06] MEDS ORDERED: dextrose 5%-1/2 normal saline 1,000 ML IV SCH (02:20)
[2019-11-06] MEDS: ipratropium/albuterol 3ml nebule NEB SCH ×5 (02:36→19:38)
[2019-11-06] MEDS: midazolam 100mg in NS 100ml 100 ML IV PRN ×2 (02:51→08:05)
[2019-11-06 02:56] LABS: ABG BASE EXCESS 2.3 mmol/L (-2.0-2.0); ABG HCO3 26.3 mmol/L (22.0-26.0); ABG OXYGEN SATURATION 95.3 % (94-97); ABG PCO2 (T) 38.6 mmHg (35.0-48.0); ABG PO2 (T) 76.8 mmHg (75.0-100.0); ALLEN'S TEST POSITIVE; FCOHb 0.3 % (0.0-3.9); FMetHb 0.3 % (0.0-1.5); FO2Hb 94.7 % (94-97); PATIENT TEMPERATURE 36.8; PEEP 5 cm H2O; RESPIRATORY RATE 18 b/min; TIDAL VOLUME 450 mL; TOTAL HEMOGLOBIN 12.8 G/dl (14.0-18.0)
--- NOTE | 2019-11-06 03:00 | NUR ---
TTM Phase 4 Normothermia is now 24 hrs. Core temp is 36.8 RASS score is -4.
[2019-11-06] MEDS: FENTANYL-0.9 % NACL/PF 100 ML IV PRN ×3 (03:29→22:18)
--- NOTE | 2019-11-06 06:23 | NUR ---
Problems reprioritized. Patient report given, questions answered & plan of care reviewed with Tyesha TAYLOR.
[2019-11-06 06:26] LABS: TROPONIN I < 0.04 NG/ML (0.0-0.05)
[2019-11-06] MEDS: K, MAG and/or Phos replacement - Verify level? MC SCH (07:44)
[2019-11-06] MEDS: pantoprazole 40 MG vial IV SCH (08:00)
[2019-11-06] MEDS: methylPREDNISolone sod succ/PF 40mg inj. IV SCH ×2 (08:00→16:00)
[2019-11-06] MEDS: enoxaparin 40mg/0.4ml syringe SUBCUT SCH (08:04)
--- NOTE | 2019-11-06 11:46 | NUR ---
Tube feeding consult received to provide goal rate and advance trickle tube feeding. Pt admit s/p cardiac arrest and status asthmaticus. Pt intubated, has right mary lou umanzor Will follow. Recommendations: 1) Continuous tube feeding per NG tube using Vital High Protein goal rate of 55 ml/hr; advance as tolerated by 20 ml q 8 hours to goal rate of 55 ml/hr will provide 1320 ml volume, 1320 calories, 116 g protein, and 1109 ml water. 2) additional 200 mL water flush q 4 hours 3) prealbumin q Wednesday/; daily weights Addendum: 11/06/19 at [address] Amended: Links added.
[2019-11-06 17:06] LABS: ABG BASE EXCESS 2.2 mmol/L (-2.0-2.0); ABG HCO3 27.9 mmol/L (22.0-26.0); ABG OXYGEN SATURATION 99.4 % (94-97); ABG PO2 (T) 470.5 mmHg (75.0-100.0); ALLEN'S TEST POSITIVE; FCOHb 0.3 % (0.0-3.9); FMetHb 0.2 % (0.0-1.5); FO2Hb 98.9 % (94-97); PATIENT TEMPERATURE 36.9; PEEP 5 cm H2O; RESPIRATORY RATE 10 b/min; TIDAL VOLUME 450 mL; TOTAL HEMOGLOBIN 13.8 G/dl (14.0-18.0)
[2019-11-06 17:26] LABS: ABG BASE EXCESS 1.3 mmol/L (-2.0-2.0); ABG HCO3 26.5 mmol/L (22.0-26.0); ABG OXYGEN SATURATION 99.4 % (94-97); ABG PCO2 (T) 44.1 mmHg (35.0-48.0); ABG PO2 (T) 419.7 mmHg (75.0-100.0); ALLEN'S TEST POSITIVE; FCOHb 0.3 % (0.0-3.9); FMetHb 0.2 % (0.0-1.5); FO2Hb 98.9 % (94-97); PEEP 5 cm H2O; RESPIRATORY RATE 12 b/min; TIDAL VOLUME 450 mL; TOTAL HEMOGLOBIN 13.7 G/dl (14.0-18.0)
--- NOTE | 2019-11-06 18:10 | NUR ---
Patient in room ICU 2042. I have received report from Tyesha TAYLOR and had the opportunity to ask questions and assume patient care.
[2019-11-06] MEDS ORDERED: acetaminophen 325mg/10.15ml oral unit dose solution NG PRN ×2 (22:14→22:15)
[2019-11-07] VITALS (41 sets, daily range): BP systolic 82–215; BP diastolic 39–150
[2019-11-07] MEDS: methylPREDNISolone sod succ/PF 40mg inj. IV SCH ×3 (00:10→16:48)
[2019-11-07] MEDS: midazolam 100mg in NS 100ml 100 ML IV PRN (01:22)
[2019-11-07] MEDS: mineral oil/petrolatum ophthal oint EACHEYE SCH ×4 (02:00→20:53)
[2019-11-07] MEDS: ipratropium/albuterol 3ml nebule NEB SCH ×7 (02:52→23:27)
[2019-11-07 02:56] LABS: BASOPHILS % (AUTO) 0.1 % (0-1); EOSINOPHILS % (AUTO) 0 % (0-6); HEMATOCRIT 38.9 % (42.0-52.0); HEMOGLOBIN 13.1 g/dl (14.0-17.9); LYMPHOCYTES # (AUTO) 0.9 X10'3 (1.1-4.8); LYMPHOCYTES % (AUTO) 6.1 % (21-51); MEAN CORPUSCULAR HEMOGLOBIN 30.1 PG (27.0-31.0); MEAN CORPUSCULAR HGB CONC 33.7 g/dL (33.0-36.5); MEAN CORPUSCULAR VOLUME 89.5 FL (78-98); MEAN PLATELET VOLUME 8.9 FL (7.4-10.4); MONOCYTES # (AUTO) 1.6 X10'3 (0-0.9); MONOCYTES % (AUTO) 10.5 % (2-12); NEUTROPHILS # (AUTO) 12.5 X10'3 (1.8-7.7); NEUTROPHILS % (AUTO) 83.3 % (42-75); PLATELET COUNT 226 X10'3 (140-440); RED BLOOD COUNT 4.34 X10'6 (4.70-6.10); RED CELL DISTRIBUTION WIDTH 12.8 % (11.5-14.5)
[2019-11-07] MEDS ORDERED: sodium chloride 0.45% 1,000 ML IV SCH (03:05)
[2019-11-07 03:06] LABS: ABG HCO3 24.5 mmol/L (22.0-26.0); ABG OXYGEN SATURATION 95.9 % (94-97); ABG PO2 (T) 78.8 mmHg (75.0-100.0); ALLEN'S TEST POSITIVE; FCOHb 0.3 % (0.0-3.9); FO2Hb 95.6 % (94-97); PEEP 5 cm H2O; RESPIRATORY RATE 16 b/min; TIDAL VOLUME 450 mL; TOTAL HEMOGLOBIN 13.9 G/dl (14.0-18.0)
[2019-11-07 03:10] LABS: PARTIAL THROMBOPLASTIN TIME 23 SECONDS (22-32)
[2019-11-07] MEDS ORDERED: hydrALAZINE 20mg/ml inj. IV ONE ×2 (03:20→03:25)
[2019-11-07 03:25] LABS: ALANINE AMINOTRANSFERASE 158 U/L (12-78); ALBUMIN 3.4 G/DL (3.4-5.0); ALBUMIN/GLOBULIN RATIO 1.1 (1.1-1.5); ALKALINE PHOSPHATASE 45 IU/L (46-116); ANION GAP 8 (8-16); ASPARTATE AMINO TRANSFERASE 154 U/L (10-37); BILIRUBIN,TOTAL 0.7 MG/DL (0.1-1.0); BLOOD UREA NITROGEN 19 MG/DL (7-18); BUN/CREATININE RATIO 22.1 (5.4-32.0); CALCIUM 9.2 MG/DL (8.5-10.1); CHLORIDE 113 MMOL/L (99-107); CREATININE 0.86 MG/DL (0.60-1.10); GLUCOSE 126 MG/DL (70-104); MAGNESIUM 2.7 MG/DL (1.5-2.4); PHOSPHORUS 3.8 MG/DL (2.3-4.5); POTASSIUM 3.6 MMOL/L (3.5-5.1); SODIUM 151 MMOL/L (135-145); TOTAL CARBON DIOXIDE 29.7 MMOL/L (24-32); TOTAL PROTEIN 6.6 G/DL (6.4-8.2); eGFR > 90 ML/MIN
[2019-11-07] MEDS: FENTANYL-0.9 % NACL/PF 100 ML IV PRN (06:22)
[2019-11-07] MEDS: K, MAG and/or Phos replacement - Verify level? MC SCH (06:49)
--- NOTE | 2019-11-07 06:50 | NUR ---
Received report from CLAUDIA Jolly
[2019-11-07] MEDS: pantoprazole 40 MG vial IV SCH (09:03)
[2019-11-07] MEDS: enoxaparin 40mg/0.4ml syringe SUBCUT SCH (09:03)
[2019-11-07] MEDS: cloNIDine 0.1 mg tablet PO SCH ×2 (12:56→20:54)
[2019-11-07 13:32] LABS: HEMOGLOBIN A1C 5.6 % (4.5-6.2)
[2019-11-07] MEDS: dextrose 5%-water 1,000 ML IV SCH ×2 (14:00→21:30)
--- NOTE | 2019-11-07 18:10 | NUR ---
Patient in room ICU 2042. I have received report from Tyesha TAYLOR and had the opportunity to ask questions and assume patient care.
--- NOTE | 2019-11-07 21:15 | NUR ---
Devante Yee notified of urine output 400ml/hr, low BP. BS 129. Order received for urine specific gravity
[2019-11-07 21:39] LABS: CLARITY,URINE CLEAR (Clear); COLOR,URINE YELLOW (Yellow); GLUCOSE, URINE NEGATIVE (Neg); KETONES,URINE NEGATIVE (Neg); LEUKOCYTE ESTERASE ,URINE SMALL (Neg); NITRITES, URINE NEGATIVE (Neg); OCCULT BLOOD,URINE MODERATE (Neg); PH,URINE 5.5 (4.8-8.0); PROTEIN,URINE NEGATIVE (Neg); UROBILINOGEN,URINE 0.2 E.U/dL (0.2-1.0)
[2019-11-07 22:08] LABS: UA COLLECTION TYPE FOLEY CATH
[2019-11-07 22:10] LABS: BACTERIA,URINE NONE SEEN /HPF (Neg); RBC,URINE 0-2 /HPF (0-2); SQUAMOUS EPITHELIAL CELL,UR FEW /LPF (FEW); WBC,URINE 0-4 /HPF (0-4)
--- NOTE | 2019-11-07 22:40 | NUR ---
Devante Yee notified of urine specific gravity 1.005 urine output 700ml since 2099. BP remains low. HOB remains flat & tube feedings remain off. Order received for albumin.
[2019-11-07] MEDS ORDERED: albumin (Human) 5% 250ml 250 ML IV ONE ×2 (22:45)
[2019-11-07] MEDS ORDERED: NORMAL SALINE IV ONE (22:55)
[2019-11-07] MEDS ORDERED: DESMOPRESSIN IV ONE (22:55)
[2019-11-08] VITALS (50 sets, daily range): BP systolic 94–156; BP diastolic 39–109
[2019-11-08] MEDS: methylPREDNISolone sod succ/PF 40mg inj. IV SCH ×4 (01:49→23:59)
[2019-11-08 02:36] LABS: BASOPHILS % (AUTO) 0.1 % (0-1); EOSINOPHILS % (AUTO) 0.3 % (0-6); HEMATOCRIT 36.1 % (42.0-52.0); HEMOGLOBIN 12.2 g/dl (14.0-17.9); LYMPHOCYTES # (AUTO) 0.8 X10'3 (1.1-4.8); LYMPHOCYTES % (AUTO) 7.3 % (21-51); MEAN CORPUSCULAR HEMOGLOBIN 30.5 PG (27.0-31.0); MEAN CORPUSCULAR HGB CONC 33.7 g/dL (33.0-36.5); MEAN CORPUSCULAR VOLUME 90.5 FL (78-98); MONOCYTES # (AUTO) 1.1 X10'3 (0-0.9); MONOCYTES % (AUTO) 10.4 % (2-12); NEUTROPHILS # (AUTO) 8.5 X10'3 (1.8-7.7); NEUTROPHILS % (AUTO) 81.9 % (42-75); PLATELET COUNT 230 X10'3 (140-440); RED BLOOD COUNT 3.99 X10'6 (4.70-6.10); RED CELL DISTRIBUTION WIDTH 12.6 % (11.5-14.5); WHITE BLOOD COUNT 10.3 X10'3 (4.5-11.0)
[2019-11-08 02:42] LABS: PARTIAL THROMBOPLASTIN TIME 22 SECONDS (22-32)
[2019-11-08 02:47] LABS: ALANINE AMINOTRANSFERASE 601 U/L (12-78); ALBUMIN 3.5 G/DL (3.4-5.0); ALBUMIN/GLOBULIN RATIO 1.2 (1.1-1.5); ALKALINE PHOSPHATASE 54 IU/L (46-116); ANION GAP 6 (8-16); ASPARTATE AMINO TRANSFERASE 361 U/L (10-37); BILIRUBIN,TOTAL 0.5 MG/DL (0.1-1.0); BLOOD UREA NITROGEN 24 MG/DL (7-18); CALCIUM 9.2 MG/DL (8.5-10.1); CHLORIDE 125 MMOL/L (99-107); CREATININE 0.89 MG/DL (0.60-1.10); GLUCOSE 129 MG/DL (70-104); MAGNESIUM 2.6 MG/DL (1.5-2.4); PHOSPHORUS 1.9 MG/DL (2.3-4.5); TOTAL CARBON DIOXIDE 31.8 MMOL/L (24-32); TOTAL PROTEIN 6.4 G/DL (6.4-8.2); eGFR > 90 ML/MIN
[2019-11-08 02:55] LABS: POTASSIUM 2.7 MMOL/L (3.5-5.1); SODIUM 163 MMOL/L (135-145)
[2019-11-08] MEDS: ipratropium/albuterol 3ml nebule NEB SCH ×7 (03:02→23:16)
[2019-11-08] MEDS: potassium CL 10mEq/100ml bag 100 ML IV PRN ×7 (03:03→13:39)
[2019-11-08] MEDS: mineral oil/petrolatum ophthal oint EACHEYE SCH ×4 (03:07→19:52)
--- NOTE | 2019-11-08 03:17 | NUR ---
Domenico notified of lab results. K + replacement infusing. NA 163. Responding to DDVAP given, urine output for past hour 60ml. Tube feedings remain off. BS 122 D5W infusing.
[2019-11-08 03:26] LABS: ABG BASE EXCESS 4.7 mmol/L (-2.0-2.0); ABG HCO3 29.8 mmol/L (22.0-26.0); ABG OXYGEN SATURATION 96.6 % (94-97); ABG PCO2 (T) 45.1 mmHg (35.0-48.0); ABG PO2 (T) 88.9 mmHg (75.0-100.0); ALLEN'S TEST POSITIVE; FCOHb 0.3 % (0.0-3.9); FO2Hb 96.3 % (94-97); PATIENT TEMPERATURE 36.3; PEEP 5 cm H2O; RESPIRATORY RATE 14 b/min; TIDAL VOLUME 450 mL; TOTAL HEMOGLOBIN 12.7 G/dl (14.0-18.0)
[2019-11-08] MEDS: dextrose 5%-water 1,000 ML IV SCH ×2 (04:02→13:53)
--- NOTE | 2019-11-08 06:40 | NUR ---
Problems reprioritized. Patient report given, questions answered & plan of care reviewed .
[2019-11-08] MEDS: desmopressin 4 MCG/1 ML amp SQ SCH ×2 (08:00→13:40)
[2019-11-08] MEDS: K, MAG and/or Phos replacement - Verify level? MC SCH (08:00)
[2019-11-08] MEDS: cloNIDine 0.1 mg tablet PO SCH ×3 (08:56→21:10)
[2019-11-08] MEDS: enoxaparin 40mg/0.4ml syringe SUBCUT SCH (08:56)
[2019-11-08] MEDS: pantoprazole 40 MG vial IV SCH (08:56)
[2019-11-08] MEDS: niCARDipine-NS 40mg/200ml IVPB 200 ML IV SCH ×2 (12:09→22:09)
[2019-11-08] MEDS ORDERED: folic acid 1mg/0.2ml inj IV SCH (15:00)
[2019-11-08] MEDS ORDERED: [UNRECOGNIZED DRUG - REMARK] IV SCH ×3 (15:00)
--- NOTE | 2019-11-08 18:30 | NUR ---
Patient in room ICU 2042. I have received report from CLAUDIA Bustos and had the opportunity to ask questions and assume patient care.
[2019-11-08] MEDS ORDERED: potassium Cl 20 mEq SR tablet NG PRN ×2 (23:32→23:33)
[2019-11-09] VITALS (24 sets, daily range): BP systolic 106–144; BP diastolic 60–85
[2019-11-09] MEDS: dextrose 5%-water 1,000 ML IV SCH ×2 (00:57→10:57)
[2019-11-09] MEDS: mineral oil/petrolatum ophthal oint EACHEYE SCH ×4 (02:26→20:20)
[2019-11-09 02:51] LABS: ABG BASE EXCESS 5.8 mmol/L (-2.0-2.0); ABG HCO3 31.8 mmol/L (22.0-26.0); ABG OXYGEN SATURATION 90.2 % (94-97); ABG PCO2 (T) 49.2 mmHg (35.0-48.0); ABG PO2 (T) 54.7 mmHg (75.0-100.0); ALLEN'S TEST POSITIVE; FCOHb 0.3 % (0.0-3.9); FMetHb 0.1 % (0.0-1.5); FO2Hb 89.8 % (94-97); PATIENT TEMPERATURE 35.7; PEEP 5 cm H2O; RESPIRATORY RATE 14 b/min; TIDAL VOLUME 450 mL; TOTAL HEMOGLOBIN 13.6 G/dl (14.0-18.0)
[2019-11-09] MEDS: ipratropium/albuterol 3ml nebule NEB SCH ×6 (02:57→22:43)
[2019-11-09] MEDS: niCARDipine-NS 40mg/200ml IVPB 200 ML IV SCH ×3 (03:40→19:09)
[2019-11-09 04:53] LABS: ALANINE AMINOTRANSFERASE 551 U/L (12-78); ALBUMIN 3.2 G/DL (3.4-5.0); ALKALINE PHOSPHATASE 76 IU/L (46-116); ANION GAP 5 (8-16); ASPARTATE AMINO TRANSFERASE 133 U/L (10-37); BILIRUBIN,TOTAL 0.5 MG/DL (0.1-1.0); BLOOD UREA NITROGEN 15 MG/DL (7-18); BUN/CREATININE RATIO 18.8 (5.4-32.0); CALCIUM 8.7 MG/DL (8.5-10.1); CHLORIDE 103 MMOL/L (99-107); GLUCOSE 240 MG/DL (70-104); MAGNESIUM 2.2 MG/DL (1.5-2.4); PHOSPHORUS 4.1 MG/DL (2.3-4.5); POTASSIUM 4.2 MMOL/L (3.5-5.1); PREALBUMIN 29.3 MG/DL (19-36); SODIUM 141 MMOL/L (135-145); TOTAL CARBON DIOXIDE 32.6 MMOL/L (24-32); TOTAL PROTEIN 6.4 G/DL (6.4-8.2); eGFR > 90 ML/MIN
[2019-11-09 05:59] LABS: BASOPHILS % (AUTO) 0.1 % (0-1); EOSINOPHILS % (AUTO) 0 % (0-6); HEMATOCRIT 37.9 % (42.0-52.0); HEMOGLOBIN 12.8 g/dl (14.0-17.9); LYMPHOCYTES # (AUTO) 1.2 X10'3 (1.1-4.8); MEAN CORPUSCULAR HEMOGLOBIN 30.6 PG (27.0-31.0); MEAN CORPUSCULAR HGB CONC 33.7 g/dL (33.0-36.5); MEAN PLATELET VOLUME 8.6 FL (7.4-10.4); MONOCYTES # (AUTO) 1.2 X10'3 (0-0.9); NEUTROPHILS # (AUTO) 12.3 X10'3 (1.8-7.7); NEUTROPHILS % (AUTO) 83.9 % (42-75); PLATELET COUNT 193 X10'3 (140-440); RED BLOOD COUNT 4.17 X10'6 (4.70-6.10); RED CELL DISTRIBUTION WIDTH 12.8 % (11.5-14.5); WHITE BLOOD COUNT 14.6 X10'3 (4.5-11.0)
--- NOTE | 2019-11-09 06:30 | NUR ---
Patient in room ICU 2042. I have received report from Ivonne TAYLOR and had the opportunity to ask questions and assume patient care.
--- NOTE | 2019-11-09 06:36 | NUR ---
Problems reprioritized. Patient report given, questions answered & plan of care reviewed with CLAUDIA Arguelles.
[2019-11-09] MEDS: pantoprazole 40 MG vial IV SCH (07:19)
[2019-11-09] MEDS: methylPREDNISolone sod succ/PF 40mg inj. IV SCH ×2 (07:20→17:36)
[2019-11-09] MEDS: cloNIDine 0.1 mg tablet NG SCH ×3 (07:21→21:22)
[2019-11-09] MEDS: enoxaparin 40mg/0.4ml syringe SUBCUT SCH (07:21)
[2019-11-09] MEDS: K, MAG and/or Phos replacement - Verify level? MC SCH (07:40)
[2019-11-09] MEDS ORDERED: dextrose 50%-water 50ml dispensing syringe IV PRN ×4 (07:55→23:55)
[2019-11-09] MEDS ORDERED: dextrose ORAL solution 15 GM/59 ML bottle PO PRN ×2 (07:55)
[2019-11-09] MEDS: insulin regular, human U-100 3ml vial - multi-dose SQ SCH ×3 (09:00→20:42)
[2019-11-09] MEDS: desmopressin 4 MCG/1 ML amp SQ SCH (09:03)
[2019-11-09] MEDS ORDERED: folic acid 1mg/0.2ml inj IV SCH (09:06)
[2019-11-09] MEDS ORDERED: dextrose ORAL solution 15 GM/59 ML bottle NG PRN ×2 (09:08)
[2019-11-09] MEDS: vancomycin/NS 1 GM ADD-VANTAGE 250 ML IV SCH ×2 (10:19→20:19)
[2019-11-09 10:25] LABS: CLARITY,URINE CLOUDY (Clear); GLUCOSE, URINE NEGATIVE (Neg); KETONES,URINE NEGATIVE (Neg); LEUKOCYTE ESTERASE ,URINE TRACE (Neg); NITRITES, URINE NEGATIVE (Neg); OCCULT BLOOD,URINE LARGE (Neg); PH,URINE 8.5 (4.8-8.0); PROTEIN,URINE 30 mg/dl (Neg); UROBILINOGEN,URINE 0.2 E.U/dL (0.2-1.0)
[2019-11-09 10:32] LABS: COLOR,URINE PINK (Yellow); UA COLLECTION TYPE NON-SPECIFIED
[2019-11-09 10:36] LABS: RBC,URINE TNTC /HPF (0-2)
[2019-11-09 10:37] LABS: BACTERIA,URINE FEW /HPF (Neg); SQUAMOUS EPITHELIAL CELL,UR NONE SEEN /LPF (FEW); WBC,URINE 0-4 /HPF (0-4)
[2019-11-09] MEDS ORDERED: thiamine inj. 100 MG, MVI, adult No.4 with vit. K 10 ML in dextrose 5% water 500ml 500 ML IV SCH ×3 (11:04)
[2019-11-09 16:56] LABS: ABG BASE EXCESS 7.5 mmol/L (-2.0-2.0); ABG HCO3 32.3 mmol/L (22.0-26.0); ABG OXYGEN SATURATION 97.1 % (94-97); ABG PCO2 (T) 46.3 mmHg (35.0-48.0); ABG PO2 (T) 93.9 mmHg (75.0-100.0); FCOHb 0.3 % (0.0-3.9); FMetHb 0.1 % (0.0-1.5); FO2Hb 96.7 % (94-97); RESPIRATORY RATE 16 b/min; TIDAL VOLUME 450 mL; TOTAL HEMOGLOBIN 12.6 G/dl (14.0-18.0)
[2019-11-09 17:20] LABS: ABG BASE EXCESS 4.3 mmol/L (-2.0-2.0); ABG HCO3 27.9 mmol/L (22.0-26.0); ABG OXYGEN SATURATION 96.1 % (94-97); ABG PO2 (T) 80.7 mmHg (75.0-100.0); FCOHb 0.3 % (0.0-3.9); FMetHb 0.2 % (0.0-1.5); FO2Hb 95.6 % (94-97); RESPIRATORY RATE 20 b/min; TIDAL VOLUME 450 mL; TOTAL HEMOGLOBIN 12.6 G/dl (14.0-18.0)
[2019-11-09 17:51] LABS: ABG BASE EXCESS 2.6 mmol/L (-2.0-2.0); ABG HCO3 32.7 mmol/L (22.0-26.0); ABG OXYGEN SATURATION 99.2 % (94-97); ABG PCO2 (T) 84.7 mmHg (35.0-48.0); ABG PO2 (T) 326.7 mmHg (75.0-100.0); FCOHb 0.3 % (0.0-3.9); FMetHb 0.4 % (0.0-1.5); FO2Hb 98.5 % (94-97); TOTAL HEMOGLOBIN 11.9 G/dl (14.0-18.0)
--- NOTE | 2019-11-09 18:30 | NUR ---
Patient in room ICU 2042. I have received report from CLAUDIA Arguelles and had the opportunity to ask questions and assume patient care.
[2019-11-09] MEDS ORDERED: lactobacillus rhamnosus 10,000 MMU CELLS/CAPSULE PO SCH (20:00)
[2019-11-09] MEDS ORDERED: insulin glargine (Lantus) pen - multi-dose SQ SCH (21:00)
--- NOTE | 2019-11-09 22:10 | NUR ---
Dr. Saldivar came to assess patient's neuro status. Patient was declared brain at 2210. [facility] will now take over care of the patient.
[2019-11-09 22:41] LABS: ABG BASE EXCESS 3.8 mmol/L (-2.0-2.0); ABG HCO3 27.6 mmol/L (22.0-26.0); ABG OXYGEN SATURATION 97.1 % (94-97); ABG PCO2 (T) 38.4 mmHg (35.0-48.0); ABG PO2 (T) 96.3 mmHg (75.0-100.0); FCOHb 0.3 % (0.0-3.9); FMetHb 0.1 % (0.0-1.5); FO2Hb 96.7 % (94-97); PATIENT TEMPERATURE 36.9; PEEP 5 cm H2O; RESPIRATORY RATE 18 b/min; TIDAL VOLUME 450 mL; TOTAL HEMOGLOBIN 12.1 G/dl (14.0-18.0)
[2019-11-09 22:56] LABS: CLARITY,URINE CLEAR (Clear); COLOR,URINE YELLOW (Yellow); GLUCOSE, URINE >=1000 mg/dl (Neg); KETONES,URINE NEGATIVE (Neg); LEUKOCYTE ESTERASE ,URINE NEGATIVE (Neg); NITRITES, URINE NEGATIVE (Neg); OCCULT BLOOD,URINE LARGE (Neg); PH,URINE 7.5 (4.8-8.0); PROTEIN,URINE NEGATIVE (Neg); UROBILINOGEN,URINE 0.2 E.U/dL (0.2-1.0)
[2019-11-09 23:00] LABS: UA COLLECTION TYPE FOLEY CATH
[2019-11-09 23:07] LABS: BACTERIA,URINE NONE SEEN /HPF (Neg); SQUAMOUS EPITHELIAL CELL,UR NONE SEEN /LPF (FEW); WBC,URINE NONE SEEN /HPF (0-4)
[2019-11-09 23:11] LABS: ALANINE AMINOTRANSFERASE 395 U/L (12-78); ALBUMIN 2.7 G/DL (3.4-5.0); ALBUMIN/GLOBULIN RATIO 0.8 (1.1-1.5); ALKALINE PHOSPHATASE 75 IU/L (46-116); ANION GAP 5 (8-16); ASPARTATE AMINO TRANSFERASE 55 U/L (10-37); BILIRUBIN,TOTAL 0.4 MG/DL (0.1-1.0); BLOOD UREA NITROGEN 20 MG/DL (7-18); BUN/CREATININE RATIO 25.6 (5.4-32.0); CALCIUM 8.5 MG/DL (8.5-10.1); CHLORIDE 102 MMOL/L (99-107); CREATININE 0.78 MG/DL (0.60-1.10); GLUCOSE 282 MG/DL (70-104); POTASSIUM 3.7 MMOL/L (3.5-5.1); SODIUM 138 MMOL/L (135-145); TOTAL CARBON DIOXIDE 31.1 MMOL/L (24-32); TOTAL PROTEIN 5.9 G/DL (6.4-8.2); eGFR > 90 ML/MIN
[2019-11-09 23:13] LABS: PARTIAL THROMBOPLASTIN TIME 23 SECONDS (22-32)
[2019-11-09 23:23] LABS: AMYLASE 60 U/L (25-115); BILIRUBIN,DIRECT 0.1 MG/DL (0-0.3); CREATINE KINASE 78 U/L (39-308); LIPASE 246 U/L (73-393); MAGNESIUM 2.1 MG/DL (1.5-2.4); PHOSPHORUS 3.1 MG/DL (2.3-4.5); TROPONIN I 0.05 NG/ML (0.0-0.05)
[2019-11-09] MEDS ORDERED: vasopressin 40 UNIT in NS 40ml IV DRIP IV SCH (23:45)
[2019-11-09] MEDS ORDERED: potassium Cl 20mEq in NS 1,000 ML IV SCH (23:45)
[2019-11-09] MEDS ORDERED: calcium chloride inj. 1,000 MG in normal saline 100ml BAG IV PRN (23:55)
[2019-11-09] MEDS: phenylephrine inj 50 MG in normal saline 250ml IV soln 245 ML IV SCH (23:55)
[2019-11-09] MEDS ORDERED: INSULIN REGULAR, HUMAN 100 UNITS in NORMAL SALINE 100ml IV SCH (23:55)
[2019-11-09] MEDS ORDERED: potassium Cl 20mEq/100mL bag 100 ML IV PRN (23:55)
[2019-11-09] MEDS ORDERED: MAGNESIUM 4 GRAM IN 100ML NS IV PRN (23:55)
[2019-11-09] MEDS ORDERED: MAGNESIUM 2 GRAM IN 50ML NS IV PRN (23:55)
[2019-11-10] VITALS (24 sets, daily range): BP systolic 100–146; BP diastolic 27–89
[2019-11-10] MEDS ORDERED: fluconazole-Diflucan 200mg/NS 100 ML IV ONE (00:05)
[2019-11-10] MEDS ORDERED: sodium phosphate inj. 30 MMOL in dextrose 5%-water 250 ML IV PRN (00:05)
[2019-11-10] MEDS ORDERED: sodium phosphate inj. 15 MMOL in dextrose 5%-water 250 ML IV PRN (00:05)
[2019-11-10 00:43] LABS: BASOPHILS % (AUTO) 0.3 % (0-1); EOSINOPHILS % (AUTO) 0.2 % (0-6); HEMATOCRIT 33.9 % (42.0-52.0); HEMOGLOBIN 11.8 g/dl (14.0-17.9); LYMPHOCYTES # (AUTO) 1.1 X10'3 (1.1-4.8); LYMPHOCYTES % (AUTO) 7.9 % (21-51); MEAN CORPUSCULAR HEMOGLOBIN 30.9 PG (27.0-31.0); MEAN CORPUSCULAR HGB CONC 34.7 g/dL (33.0-36.5); MEAN PLATELET VOLUME 8.5 FL (7.4-10.4); MONOCYTES # (AUTO) 1.6 X10'3 (0-0.9); MONOCYTES % (AUTO) 11.4 % (2-12); NEUTROPHILS # (AUTO) 11.5 X10'3 (1.8-7.7); NEUTROPHILS % (AUTO) 80.2 % (42-75); PLATELET COUNT 204 X10'3 (140-440); RED BLOOD COUNT 3.81 X10'6 (4.70-6.10); RED CELL DISTRIBUTION WIDTH 12.3 % (11.5-14.5); WHITE BLOOD COUNT 14.4 X10'3 (4.5-11.0)
[2019-11-10] MEDS: levoTHYROXINE sod inj. 200 MCG in normal saline 500ml IV soln 490 ML IV SCH ×2 (01:26→20:27)
[2019-11-10 02:29] LABS: CLARITY,URINE CLEAR (Clear); COLOR,URINE STRAW (Yellow); GLUCOSE, URINE NEGATIVE (Neg); KETONES,URINE NEGATIVE (Neg); LEUKOCYTE ESTERASE ,URINE NEGATIVE (Neg); NITRITES, URINE NEGATIVE (Neg); OCCULT BLOOD,URINE TRACE-INTACT (Neg); PROTEIN,URINE NEGATIVE (Neg); UROBILINOGEN,URINE 0.2 E.U/dL (0.2-1.0)
[2019-11-10 02:37] LABS: UA COLLECTION TYPE FOLEY CATH
[2019-11-10 02:39] LABS: BACTERIA,URINE NONE SEEN /HPF (Neg); RBC,URINE 0-2 /HPF (0-2); SQUAMOUS EPITHELIAL CELL,UR NONE SEEN /LPF (FEW); WBC,URINE NONE SEEN /HPF (0-4)
[2019-11-10] MEDS: polyvinyl alcohol ophthalmic drops 15ml bottle EACHEYE PRN ×2 (02:41→20:30)
[2019-11-10] MEDS: albuterol 2.5 MG/3 ML nebule NEB SCH ×2 (02:45→07:28)
[2019-11-10 03:15] LABS: PATIENT TEMPERATURE 36.5; RESPIRATORY RATE 20 b/min
[2019-11-10 03:16] LABS: ABG BASE EXCESS 6.1 mmol/L (-2.0-2.0); ABG HCO3 29.4 mmol/L (22.0-26.0); ABG OXYGEN SATURATION 92.7 % (94-97); ABG PCO2 (T) 36.8 mmHg (35.0-48.0); ABG PO2 (T) 60.3 mmHg (75.0-100.0); FCOHb 0.3 % (0.0-3.9); FO2Hb 92.4 % (94-97); PEEP 8 cm H2O; TIDAL VOLUME 450 mL; TOTAL HEMOGLOBIN 12.5 G/dl (14.0-18.0)
[2019-11-10] MEDS ORDERED: desmopressin 4 MCG/1 ML amp SQ ONE ×2 (03:20→16:30)
[2019-11-10] MEDS ORDERED: methylPREDNISolone sod succ 1,000 MG in normal saline 100ml IV soln 100 ML IV SCH ×2 (03:30→08:00)
[2019-11-10 04:01] LABS: ABG OXYGEN SATURATION 97.4 % (94-97); ABG PCO2 (T) 39.8 mmHg (35.0-48.0); ABG PO2 (T) 102.2 mmHg (75.0-100.0); FCOHb 0.3 % (0.0-3.9); FMetHb 0.2 % (0.0-1.5); FO2Hb 96.9 % (94-97); PATIENT TEMPERATURE 36.3; PEEP 5 cm H2O; RESPIRATORY RATE 16 b/min; TIDAL VOLUME 450 mL; TOTAL HEMOGLOBIN 12.5 G/dl (14.0-18.0)
[2019-11-10 04:29] LABS: BASOPHILS % (AUTO) 0.3 % (0-1); EOSINOPHILS % (AUTO) 0 % (0-6); HEMATOCRIT 34.2 % (42.0-52.0); HEMOGLOBIN 11.9 g/dl (14.0-17.9); LYMPHOCYTES # (AUTO) 1.8 X10'3 (1.1-4.8); LYMPHOCYTES % (AUTO) 13.9 % (21-51); MEAN CORPUSCULAR HGB CONC 34.9 g/dL (33.0-36.5); MEAN CORPUSCULAR VOLUME 88.8 FL (78-98); MEAN PLATELET VOLUME 8.6 FL (7.4-10.4); MONOCYTES # (AUTO) 1.8 X10'3 (0-0.9); MONOCYTES % (AUTO) 14.5 % (2-12); NEUTROPHILS % (AUTO) 71.3 % (42-75); PLATELET COUNT 219 X10'3 (140-440); RED BLOOD COUNT 3.85 X10'6 (4.70-6.10); RED CELL DISTRIBUTION WIDTH 12.6 % (11.5-14.5); WHITE BLOOD COUNT 12.6 X10'3 (4.5-11.0)
[2019-11-10 04:42] LABS: PARTIAL THROMBOPLASTIN TIME 24 SECONDS (22-32)
[2019-11-10 04:53] LABS: ALANINE AMINOTRANSFERASE 367 U/L (12-78); ALBUMIN 2.8 G/DL (3.4-5.0); ALBUMIN/GLOBULIN RATIO 0.8 (1.1-1.5); ALKALINE PHOSPHATASE 79 IU/L (46-116); ANION GAP 6 (8-16); ASPARTATE AMINO TRANSFERASE 48 U/L (10-37); BILIRUBIN,DIRECT 0.1 MG/DL (0-0.3); BILIRUBIN,TOTAL 0.5 MG/DL (0.1-1.0); BLOOD UREA NITROGEN 16 MG/DL (7-18); BUN/CREATININE RATIO 19.8 (5.4-32.0); CALCIUM 8.7 MG/DL (8.5-10.1); CHLORIDE 107 MMOL/L (99-107); CREATINE KINASE 94 U/L (39-308); CREATININE 0.81 MG/DL (0.60-1.10); GLUCOSE 161 MG/DL (70-104); MAGNESIUM 2.2 MG/DL (1.5-2.4); PHOSPHORUS 3.5 MG/DL (2.3-4.5); POTASSIUM 3.9 MMOL/L (3.5-5.1); SODIUM 144 MMOL/L (135-145); TOTAL CARBON DIOXIDE 30.8 MMOL/L (24-32); TOTAL PROTEIN 6.1 G/DL (6.4-8.2); TROPONIN I 0.05 NG/ML (0.0-0.05); eGFR > 90 ML/MIN
[2019-11-10] MEDS ORDERED: SODIUM PHOSPHATE IV PRN (05:40)
[2019-11-10] MEDS ORDERED: DEXTROSE 5% IV PRN ×2 (05:40→05:43)
[2019-11-10] MEDS ORDERED: WATER IV PRN ×2 (05:40→05:43)
[2019-11-10] MEDS ORDERED: potassium phosphate inj 15 MMOL in dextrose 5%-water 250 ML IV PRN ×2 (05:42)
[2019-11-10] MEDS ORDERED: potassium phosphate inj 30 MMOL in dextrose 5%-water 250 ML IV PRN ×4 (05:43)
[2019-11-10] MEDS ORDERED: POTASSIUM PHOSPHATE IV PRN (05:43)
[2019-11-10] MEDS: potassium Cl 20mEq/100mL bag 100 ML IV PRN (05:54)
[2019-11-10] MEDS ORDERED: Potassium Cl inj 40 MEQ in dextrose 5%-water 980 ML IV SCH (06:20)
--- NOTE | 2019-11-10 06:25 | NUR ---
Problems reprioritized. Patient report given, questions answered & plan of care reviewed with CLAUDIA Arguelles.
[2019-11-10] MEDS ORDERED: Potassium Cl inj 40 MEQ in dextrose 5%-water 1,000 ML IV SCH (06:36)
--- NOTE | 2019-11-10 06:42 | NUR ---
Patient in room ICU 2042. I have received report from Ivonne TAYLOR and had the opportunity to ask questions and assume patient care.
[2019-11-10] MEDS: vancomycin/NS 1 GM ADD-VANTAGE 250 ML IV SCH ×2 (07:31→20:28)
[2019-11-10 07:55] LABS: ABG BASE EXCESS 5.3 mmol/L (-2.0-2.0); ABG HCO3 30.3 mmol/L (22.0-26.0); ABG OXYGEN SATURATION 93.6 % (94-97); ABG PCO2 (T) 44.5 mmHg (35.0-48.0); ABG PO2 (T) 68.9 mmHg (75.0-100.0); FCOHb 0.3 % (0.0-3.9); FMetHb 0.1 % (0.0-1.5); FO2Hb 93.2 % (94-97); PATIENT TEMPERATURE 36.3; PEEP 5 cm H2O; RESPIRATORY RATE 16 b/min; TIDAL VOLUME 450 mL; TOTAL HEMOGLOBIN 12.3 G/dl (14.0-18.0)
[2019-11-10] MEDS ORDERED: pantoprazole 40 MG vial IV SCH (08:00)
[2019-11-10 10:53] LABS: BASOPHILS % (AUTO) 0.2 % (0-1); EOSINOPHILS % (AUTO) 0 % (0-6); HEMATOCRIT 32.2 % (42.0-52.0); LYMPHOCYTES # (AUTO) 0.6 X10'3 (1.1-4.8); LYMPHOCYTES % (AUTO) 5.1 % (21-51); MEAN CORPUSCULAR HEMOGLOBIN 30.7 PG (27.0-31.0); MEAN CORPUSCULAR HGB CONC 34.2 g/dL (33.0-36.5); MEAN CORPUSCULAR VOLUME 89.9 FL (78-98); MEAN PLATELET VOLUME 8.6 FL (7.4-10.4); MONOCYTES # (AUTO) 0.5 X10'3 (0-0.9); MONOCYTES % (AUTO) 3.5 % (2-12); NEUTROPHILS # (AUTO) 11.6 X10'3 (1.8-7.7); NEUTROPHILS % (AUTO) 91.2 % (42-75); PLATELET COUNT 189 X10'3 (140-440); RED BLOOD COUNT 3.58 X10'6 (4.70-6.10); RED CELL DISTRIBUTION WIDTH 12.6 % (11.5-14.5); WHITE BLOOD COUNT 12.8 X10'3 (4.5-11.0)
[2019-11-10 11:06] LABS: PARTIAL THROMBOPLASTIN TIME 24 SECONDS (22-32)
[2019-11-10 11:18] LABS: ALANINE AMINOTRANSFERASE 334 U/L (12-78); ALBUMIN 2.6 G/DL (3.4-5.0); ALBUMIN/GLOBULIN RATIO 0.8 (1.1-1.5); ALKALINE PHOSPHATASE 73 IU/L (46-116); ANION GAP 4 (8-16); ASPARTATE AMINO TRANSFERASE 43 U/L (10-37); BILIRUBIN,DIRECT 0.1 MG/DL (0-0.3); BILIRUBIN,TOTAL 0.4 MG/DL (0.1-1.0); BLOOD UREA NITROGEN 19 MG/DL (7-18); BUN/CREATININE RATIO 23.8 (5.4-32.0); CALCIUM 8.2 MG/DL (8.5-10.1); CHLORIDE 106 MMOL/L (99-107); CKMB RELATIVE INDEX 1.2 RATIO (0-2.5); CREATINE KINASE 104 U/L (39-308); GLUCOSE 214 MG/DL (70-104); MAGNESIUM 2.1 MG/DL (1.5-2.4); PHOSPHORUS 4.3 MG/DL (2.3-4.5); POTASSIUM 4.1 MMOL/L (3.5-5.1); SODIUM 142 MMOL/L (135-145); TOTAL CARBON DIOXIDE 32.4 MMOL/L (24-32); TOTAL PROTEIN 5.9 G/DL (6.4-8.2); TROPONIN I < 0.04 NG/ML (0.0-0.05); eGFR > 90 ML/MIN
[2019-11-10] MEDS ORDERED: albuterol 2.5 MG/3 ML nebule ONE (11:19)
[2019-11-10 11:46] LABS: ABG BASE EXCESS 0.3 mmol/L (-2.0-2.0); ABG HCO3 27.3 mmol/L (22.0-26.0); ABG PO2 (T) 71.3 mmHg (75.0-100.0); FCOHb 0.3 % (0.0-3.9); FMetHb 0.2 % (0.0-1.5); FO2Hb 90.5 % (94-97); PEEP 10 cm H2O; RESPIRATORY RATE 10 b/min; TOTAL HEMOGLOBIN 10.5 G/dl (14.0-18.0)
[2019-11-10] MEDS ORDERED: magnesium 2GM in 50ml NS 50 ML IV ONE (11:50)
[2019-11-10] MEDS ORDERED: albuterol 2.5 MG/3 ML nebule CONTNEB PRN (11:55)
[2019-11-10] MEDS: ipratropium/albuterol 3ml nebule NEB SCH ×4 (11:59→23:12)
[2019-11-10 16:31] LABS: ABG BASE EXCESS 4.6 mmol/L (-2.0-2.0); ABG HCO3 32.4 mmol/L (22.0-26.0); ABG OXYGEN SATURATION 95.1 % (94-97); ABG PCO2 (T) 65.3 mmHg (35.0-48.0); ABG PO2 (T) 85.2 mmHg (75.0-100.0); FCOHb 0.3 % (0.0-3.9); FMetHb 0.2 % (0.0-1.5); FO2Hb 94.6 % (94-97); PEEP 8 cm H2O; RESPIRATORY RATE 14 b/min; TIDAL VOLUME 450 mL
[2019-11-10 16:34] LABS: BASOPHILS % (AUTO) 0.3 % (0-1); EOSINOPHILS % (AUTO) 0 % (0-6); HEMATOCRIT 33.6 % (42.0-52.0); HEMOGLOBIN 11.3 g/dl (14.0-17.9); LYMPHOCYTES # (AUTO) 0.5 X10'3 (1.1-4.8); LYMPHOCYTES % (AUTO) 3.1 % (21-51); MEAN CORPUSCULAR HEMOGLOBIN 30.2 PG (27.0-31.0); MEAN CORPUSCULAR HGB CONC 33.7 g/dL (33.0-36.5); MEAN CORPUSCULAR VOLUME 89.7 FL (78-98); MEAN PLATELET VOLUME 8.4 FL (7.4-10.4); MONOCYTES # (AUTO) 1.2 X10'3 (0-0.9); MONOCYTES % (AUTO) 7.1 % (2-12); NEUTROPHILS # (AUTO) 15.2 X10'3 (1.8-7.7); NEUTROPHILS % (AUTO) 89.5 % (42-75); PLATELET COUNT 199 X10'3 (140-440); RED BLOOD COUNT 3.74 X10'6 (4.70-6.10); RED CELL DISTRIBUTION WIDTH 12.5 % (11.5-14.5)
[2019-11-10 16:47] LABS: PARTIAL THROMBOPLASTIN TIME 24 SECONDS (22-32)
[2019-11-10 16:54] LABS: ALANINE AMINOTRANSFERASE 314 U/L (12-78); ALBUMIN 2.7 G/DL (3.4-5.0); ALBUMIN/GLOBULIN RATIO 0.8 (1.1-1.5); ALKALINE PHOSPHATASE 86 IU/L (46-116); ANION GAP 2 (8-16); ASPARTATE AMINO TRANSFERASE 41 U/L (10-37); BILIRUBIN,DIRECT 0.1 MG/DL (0-0.3); BILIRUBIN,TOTAL 0.3 MG/DL (0.1-1.0); BLOOD UREA NITROGEN 16 MG/DL (7-18); BUN/CREATININE RATIO 22.2 (5.4-32.0); CALCIUM 8.6 MG/DL (8.5-10.1); CHLORIDE 104 MMOL/L (99-107); CREATINE KINASE 95 U/L (39-308); CREATININE 0.72 MG/DL (0.60-1.10); GLUCOSE 190 MG/DL (70-104); MAGNESIUM 2.5 MG/DL (1.5-2.4); PHOSPHORUS 4.7 MG/DL (2.3-4.5); POTASSIUM 5.2 MMOL/L (3.5-5.1); SODIUM 141 MMOL/L (135-145); TOTAL CARBON DIOXIDE 34.7 MMOL/L (24-32); TOTAL PROTEIN 6.3 G/DL (6.4-8.2); TROPONIN I < 0.04 NG/ML (0.0-0.05); eGFR > 90 ML/MIN
[2019-11-10 17:01] LABS: CLARITY,URINE SLIGHTLY CLOUDY (Clear); COLOR,URINE STRAW (Yellow); GLUCOSE, URINE NEGATIVE (Neg); KETONES,URINE NEGATIVE (Neg); LEUKOCYTE ESTERASE ,URINE NEGATIVE (Neg); NITRITES, URINE NEGATIVE (Neg); OCCULT BLOOD,URINE LARGE (Neg); PROTEIN,URINE NEGATIVE (Neg); UROBILINOGEN,URINE 0.2 E.U/dL (0.2-1.0)
[2019-11-10 17:04] LABS: TOTAL CELLS COUNTED 100
[2019-11-10 17:05] LABS: PLATELET ESTIMATE NORMAL; TOXIC GRANULATION 2+
[2019-11-10 17:06] LABS: ABG BASE EXCESS 4.8 mmol/L (-2.0-2.0); ABG OXYGEN SATURATION 93.4 % (94-97); ABG PCO2 (T) 47.6 mmHg (35.0-48.0); ABG PO2 (T) 66.7 mmHg (75.0-100.0); FCOHb 0.3 % (0.0-3.9); FMetHb 0.1 % (0.0-1.5); PEEP 8 cm H2O; RESPIRATORY RATE 24 b/min; TIDAL VOLUME 450 mL; TOTAL HEMOGLOBIN 11.2 G/dl (14.0-18.0)
[2019-11-10 17:07] LABS: UA COLLECTION TYPE NON-SPECIFIED
[2019-11-10 17:12] LABS: BACTERIA,URINE FEW /HPF (Neg); MUCUS STRANDS NONE SEEN /LPF (Neg); RBC,URINE 50-100 /HPF (0-2); SQUAMOUS EPITHELIAL CELL,UR NONE SEEN /LPF (FEW); WBC,URINE 0-4 /HPF (0-4)
[2019-11-10] MEDS ORDERED: sodium chloride 0.45% 1,000 ML IV SCH (17:15)
--- NOTE | 2019-11-10 18:30 | NUR ---
Patient in room ICU 2042. I have received report from Kindra TAYLOR and had the opportunity to ask questions and assume patient care. Alverto from [facility] also at bedside.
[2019-11-10 19:10] LABS: ABG BASE EXCESS 5.7 mmol/L (-2.0-2.0); ABG HCO3 29.3 mmol/L (22.0-26.0); ABG OXYGEN SATURATION 95.5 % (94-97); ABG PCO2 (T) 39.6 mmHg (35.0-48.0); FCOHb 0.3 % (0.0-3.9); FMetHb 0.2 % (0.0-1.5); PATIENT TEMPERATURE 37.3; PEEP 5 cm H2O; RESPIRATORY RATE 20 b/min; TIDAL VOLUME 450 mL
[2019-11-10] MEDS: phenylephrine inj 50 MG in normal saline 250ml IV soln 245 ML IV SCH (20:30)
[2019-11-10 22:07] LABS: CLARITY,URINE CLEAR (Clear); COLOR,URINE YELLOW (Yellow); GLUCOSE, URINE NEGATIVE (Neg); KETONES,URINE NEGATIVE (Neg); LEUKOCYTE ESTERASE ,URINE NEGATIVE (Neg); NITRITES, URINE NEGATIVE (Neg); OCCULT BLOOD,URINE SMALL (Neg); PH,URINE 8.5 (4.8-8.0); PROTEIN,URINE NEGATIVE (Neg); UROBILINOGEN,URINE 0.2 E.U/dL (0.2-1.0)
[2019-11-10 22:33] LABS: UA COLLECTION TYPE FOLEY CATH
[2019-11-10 22:36] LABS: BACTERIA,URINE NONE SEEN /HPF (Neg); SQUAMOUS EPITHELIAL CELL,UR FEW /LPF (FEW); WBC,URINE NONE SEEN /HPF (0-4)
[2019-11-11] VITALS: BP_SYST 165; BP_SYST 192; BP_DIAS 105; BP_DIAS 114
[2019-11-11 00:21] LABS: BASOPHILS % (AUTO) 0.1 % (0-1); EOSINOPHILS % (AUTO) 0 % (0-6); HEMATOCRIT 32.5 % (42.0-52.0); HEMOGLOBIN 11.3 g/dl (14.0-17.9); LYMPHOCYTES # (AUTO) 0.9 X10'3 (1.1-4.8); LYMPHOCYTES % (AUTO) 5.9 % (21-51); MEAN CORPUSCULAR HEMOGLOBIN 30.9 PG (27.0-31.0); MEAN CORPUSCULAR HGB CONC 34.7 g/dL (33.0-36.5); MEAN CORPUSCULAR VOLUME 89.3 FL (78-98); MEAN PLATELET VOLUME 8.6 FL (7.4-10.4); MONOCYTES # (AUTO) 1.7 X10'3 (0-0.9); MONOCYTES % (AUTO) 10.7 % (2-12); NEUTROPHILS # (AUTO) 13.1 X10'3 (1.8-7.7); NEUTROPHILS % (AUTO) 83.3 % (42-75); PLATELET COUNT 200 X10'3 (140-440); RED BLOOD COUNT 3.64 X10'6 (4.70-6.10); RED CELL DISTRIBUTION WIDTH 12.5 % (11.5-14.5); WHITE BLOOD COUNT 15.7 X10'3 (4.5-11.0)
[2019-11-11 00:26] LABS: ABG BASE EXCESS 7.5 mmol/L (-2.0-2.0); ABG HCO3 30.9 mmol/L (22.0-26.0); ABG OXYGEN SATURATION 98.1 % (94-97); ABG PCO2 (T) 38.8 mmHg (35.0-48.0); ABG PO2 (T) 128.2 mmHg (75.0-100.0); FCOHb 0.2 % (0.0-3.9); FMetHb 0.3 % (0.0-1.5); FO2Hb 97.6 % (94-97); PATIENT TEMPERATURE 36.9; PEEP 8 cm H2O; RESPIRATORY RATE 20 b/min; TIDAL VOLUME 450 mL; TOTAL HEMOGLOBIN 11.8 G/dl (14.0-18.0)
--- NOTE | 2019-11-11 00:28 | NUR ---
Pt moved for midnight xray and this has increased his HR and BP. Synthroid turned off at 1225 as instructed by Gabriele from [facility]. ABG better, FiO2 reduced to 85%.
[2019-11-11] MEDS ORDERED: VECuronium br 10mg inj. IV ONE (00:35)
[2019-11-11 00:44] LABS: ALANINE AMINOTRANSFERASE 276 U/L (12-78); ALBUMIN 2.7 G/DL (3.4-5.0); ALBUMIN/GLOBULIN RATIO 0.8 (1.1-1.5); ALKALINE PHOSPHATASE 84 IU/L (46-116); ANION GAP 6 (8-16); ASPARTATE AMINO TRANSFERASE 50 U/L (10-37); BILIRUBIN,TOTAL 0.4 MG/DL (0.1-1.0); BLOOD UREA NITROGEN 14 MG/DL (7-18); BUN/CREATININE RATIO 17.9 (5.4-32.0); CHLORIDE 104 MMOL/L (99-107); CREATININE 0.78 MG/DL (0.60-1.10); GLUCOSE 161 MG/DL (70-104); POTASSIUM 3.6 MMOL/L (3.5-5.1); SODIUM 143 MMOL/L (135-145); TOTAL CARBON DIOXIDE 32.6 MMOL/L (24-32); TOTAL PROTEIN 6.1 G/DL (6.4-8.2); eGFR > 90 ML/MIN
[2019-11-11 00:50] LABS: BILIRUBIN,DIRECT 0.1 MG/DL (0-0.3); CREATINE KINASE 172 U/L (39-308); MAGNESIUM 2.2 MG/DL (1.5-2.4); PHOSPHORUS 2.7 MG/DL (2.3-4.5); TROPONIN I < 0.04 NG/ML (0.0-0.05)
[2019-11-11] MEDS ORDERED: labetalol 20mg/4ml (5mg/ml) syringe IV ONE ×2 (00:55→01:10)
[2019-11-11 00:57] LABS: PARTIAL THROMBOPLASTIN TIME 24 SECONDS (22-32)
[2019-11-11 01:00] VITALS: BP_SYST 148; BP_SYST 177; BP_DIAS 107; BP_DIAS 98
[2019-11-11] MEDS: potassium Cl 20mEq/100mL bag 100 ML IV PRN (01:03)
[2019-11-11 01:26] LABS: CLARITY,URINE CLEAR (Clear); COLOR,URINE YELLOW (Yellow); GLUCOSE, URINE NEGATIVE (Neg); KETONES,URINE NEGATIVE (Neg); LEUKOCYTE ESTERASE ,URINE NEGATIVE (Neg); NITRITES, URINE NEGATIVE (Neg); OCCULT BLOOD,URINE LARGE (Neg); PH,URINE 6.5 (4.8-8.0); PROTEIN,URINE NEGATIVE (Neg); UROBILINOGEN,URINE 0.2 E.U/dL (0.2-1.0)
[2019-11-11] MEDS ORDERED: hydrALAZINE 20mg/ml inj. IV ONE (01:30)
[2019-11-11 01:36] LABS: UA COLLECTION TYPE FOLEY CATH
[2019-11-11 01:37] LABS: BACTERIA,URINE NONE SEEN /HPF (Neg); SQUAMOUS EPITHELIAL CELL,UR NONE SEEN /LPF (FEW); WBC,URINE NONE SEEN /HPF (0-4)
--- NOTE | 2019-11-11 01:47 | NUR ---
FiO2 increased again to 100%. Norcuron 10mg, Labetalol 10mg IV pushes x2 and a Hydralazine 5mg IV all given in attempt to decrease pt's HR and BP after he got worked up post Chest Xray. Potassium being replaced and UA pending for high urine output last hr.
[2019-11-11 02:00] VITALS: BP_SYST 137; BP_SYST 162; BP_DIAS 89; BP_DIAS 97
[2019-11-11] MEDS ORDERED: dextrose 5%-water 1,000 ML IV ONE (02:05)
--- NOTE | 2019-11-11 02:32 | NUR ---
Solumedrol given early as suggested by Gabriele from [facility], 500ml D5W bolus given as ordered.
--- NOTE | 2019-11-11 02:33 | NUR ---
and Sister at bedside setting up for walk of honor. OR teams arriving.
[2019-11-11] MEDS ORDERED: rocuronium 10mg/ml inj IV ONE ×2 (02:51→02:53)
[2019-11-11] MEDS ORDERED: METHYLPREDNISOLONE SOD SUCC IV SCH (03:30)
[2019-11-11] MEDS ORDERED: DEXTROSE 5% IV SCH (03:30)
[2019-11-11] MEDS ORDERED: WATER IV SCH (03:30)
[2019-11-11] MEDS ORDERED: ALBUTEROL INHALER 1 PUFF/90 MCG INHALER IH ONE (04:20)
== END 2019-11-11 03:00 | disposition expired | DRG 91 ==
LOC: ER 05:36 → ED HOLD 06:12 → UNDOADMIN 07:02 → ED HOLD 07:02 → ICU 2S 08:54
PROVIDERS: ADMIT Internal Medicine Critical Care Medicine; ATTEND Internal Medicine Critical Care Medicine
PROC: 4A00X4Z Measurement of Central Nervous Electrical Activity, External Approach (ICD-10-PCS; principal; 2019-11-03)
PROC: 4A00X4Z Measurement of Central Nervous Electrical Activity, External Approach (ICD-10-PCS; 2019-11-06)
PROC: 4A00X4Z Measurement of Central Nervous Electrical Activity, External Approach (ICD-10-PCS; 2019-11-08)
PROC: 04HK33Z Insertion of Infusion Device into Right Femoral Artery, Percutaneous Approach (ICD-10-PCS; 2019-11-09)
PROC: 02HV33Z Insertion of Infusion Device into Superior Vena Cava, Percutaneous Approach (ICD-10-PCS; 2019-11-09)
DX: G93.1 Anoxic brain damage, not elsewhere classified (principal); J96.90 Respiratory failure, unspecified, unspecified whether with hypoxia or hypercapnia; J45.902 Unspecified asthma with status asthmaticus; E87.0 Hyperosmolality and hypernatremia; I46.9 Cardiac arrest, cause unspecified; G93.89 Other specified disorders of brain; Z66 Do not resuscitate
CPT/HCPCS: 36415; 36600; 70450; 70551; 71045; 76700; 80048; 80053; 80076; 80305; 80320; 80329; 81001; 82150; 82330; 82550; 82553; 82803; 82948; 83036; 83605; 83690; 83735; 83880; 84100; 84132; 84134; 84145; 84295; 84484; 85007; 85018; 85025; 85610; 85730; 86885; 86900; 86901; 87040; 87070; 87077; 87081; 87088; 87186; 87635; 93005; 93306; 94002; 94003; 94640; 94760; 95816; 95951; 99291; C9113; G0378; J0360; J0696; J1450; J1650; J1815; J2250; J2597; J2920; J2930; J3010; J3370; J3411; J3475; J3480; J3490; J7030; J7040; J7060; J7070; P9045